=== PATIENT | female | born 1955 | race Caucasian/White ===

== ENCOUNTER 2017-07-05 12:43 | Emergency (ER) | payer MEDICAID ==
[2017-07-05] MEDS ORDERED: IBUPROFEN 400 MG TABLET ONE (13:17)
== END 2017-07-05 14:53 | disposition home or self-care (01) ==
LOC: EDH 12:43
DX: S93.401A Sprain of unspecified ligament of right ankle, initial encounter (principal); E11.9 Type 2 diabetes mellitus without complications; E78.5 Hyperlipidemia, unspecified; J44.9 Chronic obstructive pulmonary disease, unspecified; Z90.710 Acquired absence of both cervix and uterus; Z72.0 Tobacco use; Z88.6 Allergy status to analgesic agent; W07.XXXA Fall from chair, initial encounter; Y93.89 Activity, other specified; Y92.89 Other specified places as the place of occurrence of the external cause; Y99.8 Other external cause status
CPT/HCPCS: 73610

== ENCOUNTER → 2017-08-17 | Outpatient (CLI) | payer MEDICAID | END | disposition home or self-care (01) | LOC: RAH 07:24 | PROVIDERS: ATTEND Family Medicine | DX: I65.29 Occlusion and stenosis of unspecified carotid artery (principal) | CPT/HCPCS: 70551 ==

== ENCOUNTER 2018-03-08 08:08 | Emergency (ER) | payer MEDICAID ==
[2018-03-08 08:36] LABS: APPEARANCE,URINE Turbid (CLEAR); BILIRUBIN,URINE Negative (NEGATIVE); COLOR,URINE Yellow (YELLOW); GLUCOSE, URINE (UA) Negative (NEGATIVE); KETONES,URINE Negative (NEGATIVE); LEUKOCYTE ESTERASE ,URINE Large (NEGATIVE); NITRATE,URINE Positive (NEGATIVE); OCCULT BLOOD,URINE Moderate (NEGATIVE); PH,URINE 6.5 (5.0-8.0); PROTEIN,URINE POS 1+ (NEGATIVE); UROBILINOGEN,URINE 0.2 mg/dL (0.2-1.0)
[2018-03-08 08:46] LABS: RBC,URINE None Seen /HPF (0-1); WBC,URINE TNTC /HPF (0-1)
[2018-03-08 08:47] LABS: SQUAMOUS EPITHELIAL CELL,UR Moderate /HPF (0-2)
[2018-03-08 08:48] LABS: BACTERIA,URINE Moderate /HPF (None Seen); MUCUS,URINE Few LPF (None Seen)
[2018-03-08 08:53] LABS: AMPHET/METH SCREEN,URINE NEGATIVE (NEGATIVE); BARBITURATE SCREEN, URINE NEGATIVE (NEGATIVE); BENZODIAZEPINES SCREEN,URINE NEGATIVE (NEGATIVE); CANNABINOID SCREEN,URINE POSITIVE (NEGATIVE); COCAINE SCREEN,URINE POSITIVE (NEGATIVE); OPIATE SCREEN,URINE NEGATIVE (NEGATIVE); PHENCYCLIDINE SCREEN,URINE NEGATIVE (NEGATIVE)
[2018-03-08 09:39] LABS: CREATININE 0.7 mg/dL (0.5-1.5); POTASSIUM 3.6 mmol/L (3.5-5.1)
[2018-03-08 09:44] LABS: ALBUMIN 2.9 g/dL (3.5-5.0); BILIRUBIN,TOTAL 0.6 mg/dL (0.2-1.0); TOTAL PROTEIN, SERUM 7.2 g/dL (6.0-8.3)
[2018-03-08 09:51] LABS: BASOPHILS % (AUTO) 0.4 % (0.0-5.0); EOSINOPHILS % (AUTO) 0.1 % (0.0-8.0); HEMATOCRIT 39.9 % (36-48); MEAN CORPUSCULAR HEMOGLOBIN 29.3 pg (27.0-33.0); MEAN CORPUSCULAR HGB CONC 34.1 g/dL (32.0-36.0); MEAN CORPUSCULAR VOLUME 85.9 fL (79-99); MONOCYTES % (AUTO) 9.3 % (3.0-13.0); NEUTROPHILS % (AUTO) 84.2 % (40.0-77.0); PLATELET COUNT (AUTO) 214 K/uL (130-400); RED BLOOD CELL COUNT(AUTO) 4.64 MIL/uL (4.00-5.50); RED CELL DISTRIBUTION WIDTH 14.8 % (11.0-15.5); WHITE BLOOD COUNT (AUTO) 13.1 K/uL (4.8-10.8)
== END 2018-03-08 13:09 | disposition home or self-care (01) ==
LOC: EDH 08:08
DX: R10.32 Left lower quadrant pain (principal); R11.2 Nausea with vomiting, unspecified; R30.0 Dysuria; J44.9 Chronic obstructive pulmonary disease, unspecified; E11.9 Type 2 diabetes mellitus without complications; E78.5 Hyperlipidemia, unspecified; Z72.0 Tobacco use
CPT/HCPCS: 36415; 74176; 80053; 80305; 81001; 83690; 85025

== ENCOUNTER → 2019-01-26 | Outpatient (CLI) | payer MEDICAID | END | disposition home or self-care (01) | LOC: RAH 09:07 | PROVIDERS: ATTEND Family Medicine | DX: R10.9 Unspecified abdominal pain (principal) | CPT/HCPCS: 76700 ==

== ENCOUNTER 2019-08-20 23:40 | Observation (INO) | payer MEDICARE ==
[~2019-08-20] VITALS: Ht 162.6 cm; Wt 47.8 kg
[2019-08-21] MEDS ORDERED: IPRATROPIUM/ALBUTEROL SULFATE 3 ML SOLUTION IH ONE (01:14)
[2019-08-21] MEDS ORDERED: ALBUTEROL SULFATE 0.083% 2.5 MG/3 ML INH IH ONE ×2 (01:23→01:26)
[2019-08-21] MEDS ORDERED: METHYLPREDNISOLONE SOD SUCC 125MG/2ML VIAL ONE (01:38)
[2019-08-21] MEDS ORDERED: SODIUM CHLORIDE 0.9% 1000ML 1,000 ML IV ONE (01:38)
[2019-08-21 01:47] LABS: BASOPHILS % (AUTO) 0.7 % (0.0-5.0); EOSINOPHILS % (AUTO) 2.4 % (0.0-8.0); HEMATOCRIT 41.5 % (36-48); MEAN CORPUSCULAR HEMOGLOBIN 28.3 pg (27.0-33.0); MEAN CORPUSCULAR HGB CONC 33.3 g/dL (32.0-36.0); MEAN CORPUSCULAR VOLUME 85.2 fL (79-99); MONOCYTES % (AUTO) 7.9 % (3.0-13.0); NEUTROPHILS % (AUTO) 77.3 % (40.0-77.0); PLATELET COUNT (AUTO) 137 K/uL (130-400); RED BLOOD CELL COUNT(AUTO) 4.87 MIL/uL (4.00-5.50); RED CELL DISTRIBUTION WIDTH 14.6 % (11.0-15.5); WHITE BLOOD COUNT (AUTO) 2.9 K/uL (4.8-10.8)
[2019-08-21 01:55] LABS: CREATININE 0.8 mg/dL (0.5-1.5); POTASSIUM 3.8 mmol/L (3.5-5.1)
[2019-08-21 02:01] LABS: ALBUMIN 3.2 g/dL (3.5-5.0); BILIRUBIN,TOTAL 0.3 mg/dL (0.2-1.0); TOTAL PROTEIN, SERUM 7.2 g/dL (6.0-8.3)
[2019-08-21 02:02] LABS: INR 1.02 (0.85-1.15); PROTHROMBIN TIME 10.7 SEC (9.6-11.6)
[2019-08-21] MEDS ORDERED: AZITHROMYCIN 500MG+NS 250ML 250 ML IV ONE (02:02)
[2019-08-21 02:06] LABS: B-TYPE NATRIURETIC PEPTIDE 37 pg/mL (0-100)
[2019-08-21 02:08] LABS: INFLUENZA TYPE A NEGATIVE FOR TYPE A (NEG)
[2019-08-21 02:09] LABS: INFLUENZA TYPE B NEGATIVE FOR TYPE B (NEG)
[2019-08-21 02:20] LABS: PARTIAL THROMBOPLASTIN TIME 30.8 SEC (26.3-35.5)
[2019-08-21] MEDS ORDERED: ACETAMINOPHEN EXTRA STRENGTH 500 MG TABLET ONE (02:29)
[2019-08-21 02:51] LABS: BAND NEUTROPHILS % (MANUAL) 16 % (0-2); LYMPHOCYTES % (MANUAL) 13 % (22-44); MAN.DIFF COMMENT-IMPRESSION MANUAL DIFFERENTIAL; MONOCYTES % (MANUAL) 5 % (2-9); PLATELET MORPHOLOGY COMMENT ADEQUATE; REACTIVE LYMPHOCYTES 2 % (0-0); SEGMENTED NEUTROPHILS % 64 % (40-70)
[2019-08-21] MEDS ORDERED: DiphenhydrAMINE HCL 50 MG/ML VIAL ONE (03:34)
[2019-08-21 04:30] VITALS: BP 101/53
[2019-08-21] MEDS ORDERED: GLUCAGON 1MG KIT 1 MG ML IM PRN (05:15)
[2019-08-21] MEDS ORDERED: DEXTROSE 50%-WATER 50 ML DISP.SYRIN IV PRN (05:15)
[2019-08-21] MEDS ORDERED: SODIUM CHLORIDE 0.9% 1000ML 1,000 ML IV SCH (05:15)
[2019-08-21 05:33] LABS: ABG HCO3 20.7 mmol/L (21.0-28.0); ABG PCO2 33 mmHg (32-45)
[2019-08-21] MEDS ORDERED: BUDESONIDE 0.5 MG/2 ML INH IH SCH (06:00)
[2019-08-21] MEDS ORDERED: IPRATROPIUM/ALBUTEROL SULFATE 3 ML SOLUTION IH SCH ×2 (06:00→12:00)
[2019-08-21] MEDS: METHYLPREDNISOLONE SOD SUCC 40MG/ML 1ML IVP SCH ×2 (06:00→11:30)
[2019-08-21] MEDS: INSULIN R PO SS1 SQ SCH ×3 (06:01→17:14)
[2019-08-21 07:30] VITALS: BP 109/65
[2019-08-21] MEDS ORDERED: IPRATROPIUM 0.5 MG/2.5 ML INH IH PRN (09:15)
[2019-08-21] MEDS ORDERED: ALPR1TAB2 PO (10:58)
[2019-08-21] MEDS ORDERED: ROPI2TAB7 PO (10:58)
[2019-08-21] MEDS ORDERED: TIOT4MIS5 IH (10:58)
[2019-08-21] MEDS ORDERED: METF-444 PO (10:58)
[2019-08-21] MEDS ORDERED: BUDE10.2 IH (10:58)
[2019-08-21] MEDS ORDERED: PREG150C PO (10:58)
[2019-08-21] MEDS ORDERED: CLOP75TA14 PO (10:59)
[2019-08-21 11:00] VITALS: BP 109/60
[2019-08-21] MEDS ORDERED: HYDR-4453 PO (11:02)
[2019-08-21] MEDS ORDERED: MIRT-72 PO (11:02)
[2019-08-21] MEDS ORDERED: PREGABALIN 75 MG CAPSULE PO SCH (11:04)
[2019-08-21] MEDS ORDERED: ROPINIROLE HCL 1 MG TABLET PO SCH (14:00)
[2019-08-21] MEDS ORDERED: ALPRAZOLAM 1 MG TAB PO SCH (14:00)
[2019-08-21] MEDS ORDERED: HYDROCODONE/ACETAMINOPHEN 10/325 MG TAB PO SCH (14:00)
--- NOTE | 2019-08-21 14:54 | NUR ---
[id number] patient signed ALVARADO Letter, i faxed ALVARADO Letter to [id number] and placed in chart under consent tab
--- NOTE | 2019-08-21 15:05 | NUR ---
RDSCREEN - BMI 18.1, increased malnutrition risk Pt admitted for COPD exacerbation. Pt with chewing difficulty, Pt explains dentures getting repaired but may not be affordable. Pt also expresses difficulty to receive adequate meals/nutrition at home due to stress and dependence on care provider. Pt with significant 20% weight loss within one year. RD recommend malnutrition education. Also recommend mechanical soft diet, Ensure TID. Pt with swallowing difficulty with corn and rice. RD to follow up and to continue to monitor. Please notify RD as additional nutrition concerns arise. Thank you. Addendum: 08/21/19 at [address] RD Amended: Links added.
--- NOTE | 2019-08-21 15:13 | NUR ---
Nutrition Education Malnutrition education provided secondary to Pt with significant weight loss x1Yr, moderate to severe body fat and muscle loss. Pt also educated on eating regular consistent meals daily. Pt verbalized understanding. [place] to follow up. Addendum: 08/21/19 at [address] Amended: Links added.
--- NOTE | 2019-08-21 15:52 | NUR ---
INITIAL Patient lives with son, Zachariah Alejandro, [phone]. No Home Health. [facility] X 22 hours a week. DME: shower chair. Patient needs help with ADL's independently but does not drive. PCP is Dr. Govind Vann. Pharmacy is [facility]. DCP is home. Addendum: 08/21/19 at 1554 by ALLYSSA TSAI SS Amended: Links added.
[2019-08-21 16:00] VITALS: BP 109/68
--- NOTE | 2019-08-21 17:36 | NUR ---
DISCHARGE NOTE: DISCHARGE INSTRUCTIONS GIVEN TO PATIENT, MADE AWARE OF NEED TO FOLLOW UP WITH [facility] IN ONE WEEK AND PCP 2-3 DAYS. NO NEW PRESCRIPTIONS GIVEN. IV DISCONTINUED. PATIENT AT THIS TIME DENIES SHORTNESS OF BREATH. BREATHING NON LABORED. ROOM AIR. NO SIGNS AND SYMPTOMS OF ACUTE DISTRESS NOTED. PATIENT WAITING FOR HER SON TO PICK HER UP
[2019-08-21] MEDS ORDERED: MIRTAZAPINE 15 MG TABLET PO SCH (21:00)
[2019-08-22] MEDS ORDERED: METFORMIN HCL 500 MG TABLET PO SCH (08:00)
[2019-08-22] MEDS ORDERED: CETIRIZINE HCL 5 MG TABLET PO SCH (09:00)
[2019-08-22] MEDS ORDERED: TIOTROPIUM BROMIDE 4 GM IH SCH (09:00)
[2019-08-22] MEDS ORDERED: CLOPIDOGREL BISULFATE 75 MG TAB PO SCH (09:00)
== END 2019-08-21 17:55 | disposition home or self-care (01) ==
LOC: EDH 23:40 → EDHIP 08-21 02:35 → 3DH 08-21 03:39
PROVIDERS: ADMIT Internal Medicine Critical Care Medicine; ATTEND Internal Medicine Critical Care Medicine
DX: J44.1 Chronic obstructive pulmonary disease with (acute) exacerbation (principal); I95.9 Hypotension, unspecified; S80.862A Insect bite (nonvenomous), left lower leg, initial encounter; R11.2 Nausea with vomiting, unspecified; E87.1 Hypo-osmolality and hyponatremia; F41.9 Anxiety disorder, unspecified; F32.9 Major depressive disorder, single episode, unspecified; E78.5 Hyperlipidemia, unspecified; E11.9 Type 2 diabetes mellitus without complications; E44.0 Moderate protein-calorie malnutrition; R63.4 Abnormal weight loss; F17.210 Nicotine dependence, cigarettes, uncomplicated; F12.10 Cannabis abuse, uncomplicated; Z87.01 Personal history of pneumonia (recurrent); Z79.51 Long term (current) use of inhaled steroids; Z79.899 Other long term (current) drug therapy; Z88.6 Allergy status to analgesic agent; Z91.048 Other nonmedicinal substance allergy status; Z88.0 Allergy status to penicillin; W57.XXXA Bitten or stung by nonvenomous insect and other nonvenomous arthropods, initial encounter; Y93.89 Activity, other specified; Y92.89 Other specified places as the place of occurrence of the external cause; Z68.1 Body mass index [BMI] 19.9 or less, adult
CPT/HCPCS: 36415; 36600; 71045 ×2; 80053; 82550; 82803; 82948 ×3; 83690; 83880; 84484; 85025; 85610; 85730; 87040 ×2; 87804 ×2; 93005; 94640 ×6; 94664; 96361; 96374; 96376; 99285; G0378 ×14; J0456; J1200; J1815 ×2; J2920 ×2; J2930; J7030

== ENCOUNTER 2022-02-06 14:40 | Emergency (ER) | payer MEDICARE ==
[~2022-02-06] VITALS: Ht 162.6 cm; Wt 49.9 kg
[~2022-02-06 14:40] MED LIST: ALPR1TAB2 PO; BUDE10.2 IH; CLOP75TA14 PO; FLUT16H NASAL; HYDR-4453 PO; LORA10TA7 PO; METF-444 PO; MIRT-72 PO; PREG150C PO; ROPI2TAB7 PO; TIOT4MIS5 IH
[2022-02-06 14:43] VITALS: BP 116/54
[2022-02-06] MEDS ORDERED: CYCLOBENZAPRINE HCL 10 MG TABLET PO ONE (15:00)
[2022-02-06] MEDS ORDERED: 0.9% NACL 500ML IV.SOLN 500 ML IV SCH (15:00)
[2022-02-06] MEDS ORDERED: KETOROLAC 30MG VIAL (30MG/ML) IVP ONE (15:00)
[2022-02-06] MEDS ORDERED: PROMETHAZINE HCL 25 MG/ML 1ML AMPULE IM SCH (15:00)
[2022-02-06] MEDS ORDERED: PROMETHAZINE HCL 25 MG/ML 1ML AMPULE IVPB SCH (15:00)
[2022-02-06 15:14] LABS: BASOPHILS % (AUTO) 0.7 % (0.0-5.0); EOSINOPHILS % (AUTO) 2.8 % (0.0-8.0); HEMATOCRIT 38.4 % (36-48); LYMPHOCYTES % (AUTO) 27.2 % (21.0-51.0); MEAN CORPUSCULAR HGB CONC 32.8 g/dL (32.0-36.0); MEAN CORPUSCULAR VOLUME 88.5 fL (79-99); MONOCYTES % (AUTO) 11.9 % (3.0-13.0); NEUTROPHILS % (AUTO) 56.7 % (40.0-77.0); PLATELET COUNT (AUTO) 230 K/uL (130-400); RED BLOOD CELL COUNT(AUTO) 4.34 MIL/uL (4.00-5.50); RED CELL DISTRIBUTION WIDTH 14.5 % (11.0-15.5); WHITE BLOOD COUNT (AUTO) 4.3 K/uL (4.8-10.8)
[2022-02-06 15:26] LABS: CREATININE 0.7 mg/dL (0.5-1.5); POTASSIUM 4.8 mmol/L (3.5-5.1)
[2022-02-06 15:31] LABS: TOTAL PROTEIN, SERUM 6.7 g/dL (6.0-8.3)
[2022-02-06] MEDS ORDERED: NAPR-1180 PO (16:02)
[2022-02-06] MEDS ORDERED: CYCL10TA16 PO (16:02)
[2022-02-06] MEDS ORDERED: ALBU8.5H8 IH (16:02)
[2022-02-06] MEDS ORDERED: D-ME1POW16 PO (16:02)
== END 2022-02-06 16:12 | disposition home or self-care (01) ==
LOC: EDH 14:40
DX: G44.209 Tension-type headache, unspecified, not intractable (principal); J06.9 Acute upper respiratory infection, unspecified; M26.69 Other specified disorders of temporomandibular joint; Z20.822 Contact with and (suspected) exposure to COVID-19; I10 Essential (primary) hypertension; E11.9 Type 2 diabetes mellitus without complications; M19.90 Unspecified osteoarthritis, unspecified site; Z88.0 Allergy status to penicillin; Z88.6 Allergy status to analgesic agent; Z79.1 Long term (current) use of non-steroidal anti-inflammatories (NSAID); Z79.51 Long term (current) use of inhaled steroids; Z79.899 Other long term (current) drug therapy; Z86.73 Personal history of transient ischemic attack (TIA), and cerebral infarction without residual deficits
CPT/HCPCS: 99284; 96374; 87635; 80053; 85025; 36415; 96372; C9803; J7040; J2550; J1885

== ENCOUNTER 2022-10-01 13:37 | Emergency (ER) | payer MEDICARE ==
[~2022-10-01] VITALS: Ht 167.6 cm; Wt 45.4 kg
[~2022-10-01 13:37] MED LIST changes: +ALBU8.5H8 IH; +CLOP-31 PO; -CLOP75TA14 PO; +CYCL10TA16 PO; +D-ME1POW16 PO; +NAPR-1180 PO
[2022-10-01 14:05] VITALS: BP 126/58
[2022-10-01 14:57] LABS: BASOPHILS % (AUTO) 0.9 % (0.0-5.0); EOSINOPHILS % (AUTO) 1.1 % (0.0-8.0); HEMATOCRIT 41.8 % (36-48); LYMPHOCYTES % (AUTO) 22.9 % (21.0-51.0); MEAN CORPUSCULAR HEMOGLOBIN 28.9 pg (27.0-33.0); MEAN CORPUSCULAR HGB CONC 32.8 g/dL (32.0-36.0); MEAN CORPUSCULAR VOLUME 88.2 fL (79-99); MONOCYTES % (AUTO) 7.9 % (3.0-13.0); PLATELET COUNT (AUTO) 232 K/uL (130-400); RED BLOOD CELL COUNT(AUTO) 4.74 MIL/uL (4.00-5.50); RED CELL DISTRIBUTION WIDTH 14.2 % (11.0-15.5); WHITE BLOOD COUNT (AUTO) 5.7 K/uL (4.8-10.8)
[2022-10-01 15:04] LABS: CREATININE 0.8 mg/dL (0.5-1.5); POTASSIUM 3.4 mmol/L (3.5-5.1)
[2022-10-01 15:11] LABS: ALBUMIN 4.1 g/dL (3.5-5.0); TOTAL PROTEIN, SERUM 7.6 g/dL (6.0-8.3)
== END 2022-10-01 16:37 | disposition home or self-care (01) ==
LOC: EDH 13:37
DX: F41.9 Anxiety disorder, unspecified (principal); R05.9 Cough, unspecified; M54.9 Dorsalgia, unspecified; G43.909 Migraine, unspecified, not intractable, without status migrainosus; F17.200 Nicotine dependence, unspecified, uncomplicated; E11.9 Type 2 diabetes mellitus without complications; I10 Essential (primary) hypertension; M19.90 Unspecified osteoarthritis, unspecified site; Z79.1 Long term (current) use of non-steroidal anti-inflammatories (NSAID); Z79.51 Long term (current) use of inhaled steroids; Z79.899 Other long term (current) drug therapy; Z86.73 Personal history of transient ischemic attack (TIA), and cerebral infarction without residual deficits; Z88.0 Allergy status to penicillin; Z88.6 Allergy status to analgesic agent
CPT/HCPCS: 36415; 71045; 80053; 83735; 84484; 85025; 93005

== ENCOUNTER 2022-10-05 12:00 | Emergency (ER) | payer MEDICARE ==
[~2022-10-05] VITALS: Ht 149.9 cm; Wt 59.0 kg
[2022-10-05 12:50] LABS: BASOPHILS % (AUTO) 0.9 % (0.0-5.0); EOSINOPHILS % (AUTO) 2.9 % (0.0-8.0); HEMATOCRIT 38.6 % (36-48); LYMPHOCYTES % (AUTO) 21.3 % (21.0-51.0); MEAN CORPUSCULAR HEMOGLOBIN 29.4 pg (27.0-33.0); MEAN CORPUSCULAR HGB CONC 33.4 g/dL (32.0-36.0); MEAN CORPUSCULAR VOLUME 87.9 fL (79-99); MONOCYTES % (AUTO) 8.6 % (3.0-13.0); NEUTROPHILS % (AUTO) 65.9 % (40.0-77.0); PLATELET COUNT (AUTO) 237 K/uL (130-400); RED BLOOD CELL COUNT(AUTO) 4.39 MIL/uL (4.00-5.50); RED CELL DISTRIBUTION WIDTH 14.2 % (11.0-15.5); WHITE BLOOD COUNT (AUTO) 5.6 K/uL (4.8-10.8)
[2022-10-05] MEDS ORDERED: 0.9% NACL 500ML IV.SOLN 500 ML IV ONE (13:00)
[2022-10-05] MEDS ORDERED: LORAZEPAM 2 MG/ML 1 ML VIAL IVP ONE (13:00)
[2022-10-05 13:15] LABS: CREATININE 0.8 mg/dL (0.5-1.5); POTASSIUM 3.4 mmol/L (3.5-5.1)
[2022-10-05 13:20] LABS: ALBUMIN 3.5 g/dL (3.5-5.0); TOTAL PROTEIN, SERUM 6.4 g/dL (6.0-8.3)
[2022-10-05 14:44] LABS: AMPHET/METH SCREEN,URINE NEGATIVE (NEGATIVE); BARBITURATE SCREEN, URINE NEGATIVE (NEGATIVE); BENZODIAZEPINES SCREEN,URINE NEGATIVE (NEGATIVE); CANNABINOID SCREEN,URINE NEGATIVE (NEGATIVE); COCAINE SCREEN,URINE POSITIVE (NEGATIVE); OPIATE SCREEN,URINE NEGATIVE (NEGATIVE); PHENCYCLIDINE SCREEN,URINE NEGATIVE (NEGATIVE)
[2022-10-05 16:07] LABS: BILIRUBIN,URINE NEGATIVE (NEGATIVE); COLOR,URINE YELLOW (YELLOW); GLUCOSE, URINE (UA) NEGATIVE (NEGATIVE); KETONES,URINE 15 mg/dL (NEGATIVE); LEUKOCYTE ESTERASE ,URINE LARGE Leu/uL (NEGATIVE); NITRATE,URINE NEGATIVE (NEGATIVE); OCCULT BLOOD,URINE TRACE-INTACT (NEGATIVE); PROTEIN,URINE 100 mg/dL (NEGATIVE); UROBILINOGEN,URINE 0.2 mg/dL (0.2-1.0)
[2022-10-05 16:25] LABS: APPEARANCE,URINE SLIGHTLY CLOUDY (CLEAR)
[2022-10-05 16:28] LABS: BACTERIA,URINE Many /HPF (None Seen); RBC,URINE 0-1 /HPF (0-1)
[2022-10-05] MEDS ORDERED: SULF1TAB42 PO (16:37)
[2022-10-05] MEDS ORDERED: SULFAMETHOX-TMP DS 800/160 TAB PO SCH (17:00)
[2022-10-05 17:19] VITALS: BP 136/86
== END 2022-10-05 17:38 | disposition home or self-care (01) ==
LOC: EDH 12:00
DX: N39.0 Urinary tract infection, site not specified (principal); E11.9 Type 2 diabetes mellitus without complications; J44.9 Chronic obstructive pulmonary disease, unspecified; F41.9 Anxiety disorder, unspecified; Z88.0 Allergy status to penicillin; Z88.8 Allergy status to other drugs, medicaments and biological substances; Z79.899 Other long term (current) drug therapy
CPT/HCPCS: 99285; 96374; 71045; 96361; 84484; 80053; 80305; 85025; 87088; 36415; 93005; 81001; J7040; J2060

== ENCOUNTER 2025-04-11 15:29 | Emergency (ER) | payer MEDICARE, MEDICAID ==
[~2025-04-11] VITALS: Ht 167.6 cm; Wt 63.5 kg
[~2025-04-11 15:29] MED LIST changes: +ROPI2TAB53 PO; -ROPI2TAB7 PO; +SULF1TAB42 PO
--- NOTE | 2025-04-11 15:34 | ERN ---
ED Note History of Present Illness Stated Complaint: OTHER Time Seen by MD: 15:31 Dictation: PATIENT IS A 69-YEAR-OLD FEMALE COMING IN VIA EMS FROM A LOCAL [facility] [facility]. SHE STATES SHE IS HAVING COCCYX PAIN STATUS POST A SAME LEVEL TRIP FALL 2-3 DAYS AGO. ALSO STATES SHE FEELS VERY WEAK AND POSSIBLY DEHYDRATED. NO SPECIFIC COMPLAINTS. NEUROVASCULAR CMS INTACT TO ALL EXTREMITIES, NO BLOOD THINNERS NO HEAD INJURY. NO CHANGE IN BLADDER BLADDER FUNCTION Allergies: Coded Allergies: Penicillins (Unverified Allergy, Severe, SWELLING, 08/21/19) aspirin (Unverified Allergy, Unknown, SWELLING, 08/21/19) warfarin (Unverified Allergy, Unknown, 02/06/22) wool (Unverified Allergy, Unknown, RASH, 08/21/19) Home Meds Active Scripts Sulfamethoxazole/Trimethoprim (Bactrim Ds Tablet) 1 Each Tablet, 1 TAB PO BID for 7 Days, #14 TAB 0 Refills Prov:NIRAJ WEINER CLAY MAKER 10/05/22 Albuterol Sulfate (Proair Hfa) 8.5 Gm Hfa.aer.ad, 2 PUFF IH QIDP, #1 INHALER Prov:EJ LAGUNA 02/06/22 D-Methorphan/PE/Acetaminophen (Theraflu Ms Severe Cold Pckt) 1 Each Powd.pack, 1 EACH PO QIDP, #20 PACK Prov:EJ LAGUNA 02/06/22 Cyclobenzaprine HCl (Flexeril) 10 Mg Tab, 10 MG PO BID, #30 TAB Prov:EJ LAGUNA 02/06/22 Naproxen (Naprosyn) 500 Mg Tablet, 500 MG PO BIDPC, #60 TAB Prov:EJ LAGUNA 02/06/22 Loratadine (Loratadine) 10 Mg Tablet, 10 MG PO DAILY for 30 Days, #30 TAB Prov:SANDRA HAAS MD 11/07/21 Fluticasone Propionate (Flonase Nasal [place]) 50 Mcg/[place], 50 MCG NASAL BID for 7 Days, #14 SPRAY Prov:SANDRA HAAS MD 11/07/21 Reported Medications Mirtazapine (Mirtazapine) 15 Mg Tab.rapdis, 15 MG PO HS, TAB 3/3/20 Hydrocodone/Acetaminophen ([place] 10-325 Tablet) 1 Each Tablet, 1 EACH PO TID, TAB 08/21/19 Clopidogrel Bisulfate (Plavix) 75 Mg Tablet, 75 MG PO DAILY, TAB 08/21/19 Pregabalin (Lyrica) 150 Mg Capsule, 150 MG PO BID, CAP 08/21/19 Alprazolam (Xanax) 1 Mg Tablet, 1 MG PO TID, TAB 08/21/19 Budesonide/Formoterol Fumarate (Symbicort 160-4.5 Mcg Inhaler) 10.2 Gm Hfa.aer.ad, 10.2 GM IH BID 08/21/19 Metformin HCl (Metformin HCl) 500 Mg Tablet, 500 MG PO DAILYBKFST, TAB 08/21/19 Ropinirole HCl (Ropinirole HCl) 2 Mg Tablet, 2 MG PO TID, TAB 08/21/19 Tiotropium [place] (Spiriva Respimat) 4 Gm Mist.inhal, 4 GM IH DAILY 08/21/19 Past Medical History Past Medical History: Anxiety, Bronchitis, COPD, Diabetes-Type II Additional Past Medical Hx: Restless leg syndrome, BACK PAIN Surgical History: Other Surgical History Other: SHOULDER AND NECK SURGERY Family History: Negative Social History: Negative History: Not Applicable RN Note Reviewed/Agreed w/PFSH: Yes Review of System Dictation CONSTITUTIONAL: NEGATIVE EXCEPT FOR HPI GENERALIZED BODY WEAK HEAD/FACE: NEGATIVE EXCEPT FOR HPI EENT: NEGATIVE EXCEPT FOR HPI RESPIRATORY: NEGATIVE EXCEPT FOR HPI GASTROINTESTINAL/ABDOMINAL: NEGATIVE EXCEPT FOR HPI GENITOURINARY: NEGATIVE EXCEPT FOR HPI MUSCULOSKELETAL: NEGATIVE EXCEPT FOR HPI COCCYX PAIN INTEGUMENTARY: NEGATIVE EXCEPT FOR HPI NEUROLOGICAL/PSYCH: NEGATIVE EXCEPT FOR HPI HEMATOLOGIC/LYMPHATIC: NEGATIVE EXCEPT FOR HPI ALL SYSTEMS NEGATIVE, EXCEPT NOTED ABOVE. 13 POINT REVIEW OF SYSTEMS ASSESSED AND ALL NEGATIVE EXCEPT FOR ABOVE. Initial Vital Sign VS Vital Signs Date Time Temp Pulse Resp B/P (MAP) Pulse Ox O2 Delivery O2 Flow Rate FiO2 04/11/25 16:04 98.1 72 21 104/59 97 Room Air 0 04/11/25 16:18 21 Physical Exam Dictation VITAL SIGNS REVIEWED GENERAL APPEARANCE: ALERT, ORIENTED X 3, MILD ACUTE DISTRESS, WELL DEVELOPED, NOURISHED. HEAD AND FACE: NON-TRAUMATIC. EYES: PERRL, PINK CONJUNCTIVAS, EYELID NO TRAUMA, ANTERIOR CHAMBER WITH ARCUS SENILIS. EARS: PINNAS INTACT AND NO SIGNS OF TRAUMA OR ERYTHEMA EAR CANALS CLEAR AND NO DISCHARGE TM NO ERYTHEMA NOSE: NO DISCHARGE, NO BLEEDING. OROPHARYNX: MOUTH NORMAL, TONGUE PINK, PHARYNX CLEAR,NO ERYTHEMA, TONSILS NO EXUDATES, NO ABSCESSES NOTED, MUCOUS MEMBRANE MOIST NECK: SUPPLE, NON-TENDER, NO THYROMEGALY, NO MASSES, NO JVD, NO BRUITS BREAST:DEFERRED CHEST:NO TENDERNESS, NO CREPITUS, NO PARADOXICAL MOVEMENT, NO RETRACTIONS LUNGS:CLEAR, WELL-VENTILATED, SYMMETRIC, NO RALES, NO WHEEZING, NO RHONCHI, NO STRIDOR, GOOD BREATH SOUNDS BILATERALLY HEART: REGULAR RATE, REGULAR RHYTHM, NO MURMUR, NO GALLOPS VASCULAR: NO PERIPHERAL EDEMA, ABDOMEN: SOFT, POSITIVE BOWEL SOUNDS, NONDISTENDED, NO GUARDING, NONTENDER, NO REBOUND, NO MASSES NO HEPATOMEGALY, NO SPLENOMEGALY, NO MARTÍNEZ'S SIGN, NO HERNIAS. RECTAL: DEFERRED GENITAL: DEFERRED NEUROLOGICAL: NORMAL SPEECH, MOTOR FUNCTION INTACT, SENSORY FUNCTION INTACT MUSCULOSKELETAL: NECK NONTENDER, FULL RANGE OF MOTION, MILD MIDLINE SACRAL COCCYX TENDERNESS WITH PALPATION NEGATIVE STRAIGHT LEG RAISE BILATERALLY 10 DEGREE EXTREMITIES: NONTENDER, FULL RANGE OF MOTION SKIN: COLOR PINK, DRY, NO TURGOR, NO RASH, NO LACERATIONS, NO ABRASIONS, NO CONTUSIONS. LYMPHATIC: DEFERRED Results (Laboratory/Radiology) Laboratory/Radiology Laboratory Tests Test 04/11/25 15:45 White Blood Count 7.0 K/uL (4.8-10.8) Red Blood Count 4.73 MIL/uL (4.00-5.50) Hemoglobin 13.5 g/dL (12.0-16.0) Hematocrit 38.8 % (36-48) Mean Corpuscular Volume 82.0 fL (79-99) Mean Corpuscular Hemoglobin 28.5 pg (27.0-33.0) Mean Corpuscular Hemoglobin Concent 34.8 g/dL (32.0-36.0) Red Cell Distribution Width 14.8 % (11.0-15.5) Platelet Count 294 K/uL (130-400) Mean Platelet Volume 9.3 fL (7.5-10.5) Immature Granulocyte % (Auto) 0.6 % (0-1) Neutrophils (%) (Auto) 65.3 % (40.0-77.0) Lymphocytes (%) (Auto) 22.0 % (21.0-51.0) Monocytes (%) (Auto) 9.8 % (3.0-13.0) Eosinophils (%) (Auto) 1.9 % (0.0-8.0) Basophils (%) (Auto) 0.4 % (0.0-5.0) Neutrophils # (Auto) 4.5 K/uL (1.8-7.7) Lymphocytes # (Auto) 1.5 K/uL (1.0-4.8) Monocytes # (Auto) 0.7 K/uL (0.1-1.0) Eosinophils # (Auto) 0.13 K/uL (0.00-0.70) Basophils # (Auto) 0.03 K/uL (0.00-0.20) Absolute Immature Granulocyte (auto 0.04 K/uL (0-1) Nucleated Red Blood Cells 0.0 % (0.0-0.19) Sodium Level 134 mmol/L (136-145) L Potassium Level 3.0 mmol/L (3.5-5.1) *L Chloride Level 97 mmol/L (101-111) L Carbon Dioxide Level 26 mmol/L (21-32) Blood Urea Nitrogen 30 mg/dL (7-18) H Creatinine 0.8 mg/dL (0.5-1.0) Glomerular Filtration Rate Calc 79 mL/min (>90) Random Glucose 154 mg/dL (70-105) H Total Calcium 9.0 mg/dL (8.5-10.1) Troponin I High Sensitivity 25 ng/L (4-50) 1645/SACRAL COCCYX X-RAY DEGENERATIVE CHANGES ONLY NO FRACTURE Labs Reviewed?: Yes EKG Comment: 1559/EKG SINUS BRADYCARDIA/HEART RATE 59/AXIS NORMAL/LEFT ATRIAL ENLARGEMENT ED Course ED Course Orders Procedure Category Date Status Time Sacrum/Coccyx 2+Vws RAD 04/11/25 Resulted 15:32 Cbc With Differential LAB 04/11/25 Complete 15:32 Troponin I High LAB 04/11/25 Complete Sensitivity 15:32 12 Lead Ekg Tracing- EKG 04/11/25 Resulted Technical 15:32 0.9%Nacl 1000ml (Ns PHA 04/11/25 Complete 1000ml) 16:00 Ketorolac PHA 04/11/25 Complete Tromethamine 30mg/Ml 16:00 Basic Metabolic Panel LAB 04/11/25 Complete 15:32 Potassium Bicarb/Cit PHA 04/11/25 Complete Ac 25meq (K-Lyte Ta 16:30 Acetaminophen 500mg PHA 04/11/25 Complete Tab (Tylenol 500mg T 16:30 Current Medications Medications (Trade) Dose Ordered Sig/Franco Route PRN Reason Start Time Stop Time Status Last Admin Dose Admin Acetaminophen (TYLenol 500MG TAB) 1,000 mg ONCE ONCE PO 04/11/25 16:30 04/11/25 16:32 DC Ketorolac Tromethamine (toRADol) 30 mg ONCE ONCE IVP 04/11/25 16:00 04/11/25 16:26 DC Potassium Bicarbonate (K-Lyte Tablet Eff 25 Meq Tablet.eff) 50 meq ONCE ONCE PO 04/11/25 16:30 04/11/25 16:31 DC 04/11/25 16:57 Sodium Chloride 1,000 ml @ 0 mls/hr ONCE ONCE IV 04/11/25 16:00 04/11/25 16:01 DC 04/11/25 16:57 Vital Signs Date Time Temp Pulse Resp B/P (MAP) Pulse Ox O2 Delivery O2 Flow Rate FiO2 04/11/25 16:18 98.1 72 21 104/59 97 Room Air* 0 21 04/11/25 16:04 98.1 72 21 104/59 97 Room Air 0 1610/POTASSIUM 3.0. WE WILL FOLLOW TO REPLACE.1730/PATIENT HEMODYNAMICALLY STABLE WE WILL BE DISCHARGED HOME TO FAMILY SHE IS AWARE X-RAY IS NEGATIVE SHE HAS MILD DEHYDRATION. POTASSIUM WAS 3.0 AND WAS REPLACED. HEART Score Response (Comments) Value EKG: Repolarization changes 1 Age: > 65yrs (+2) 2 Risk Factors: 1-2 risk factors (+1) 1 Initial Troponin: Normal limit (0) 0 Total 4 Medical Decision Making MDM MDM: DIFFERENTIAL DIAGNOSIS: SACRAL/LUMBAR COCCYX/FRACTURE/ELECTROLYTE IMBALANCE/DEHYDRATION/WEAKNESS/ACS RATIONALE: TESTS CONSIDERED AND ORDERED SECONDARY TO SHARED DECISION MAKING INCLUDE: LABS/RADIOLOGY/EKG PREVIOUS OUTSIDE RECORDS REVIEWED: OLD ER VISITS. RISK OF COMPLICATION AND/OR MORBIDITY OR MORTALITY OF PATIENT MANAGEMENT: NONE MEDICATIONS-PER MEDICATION RECONCILIATION NEED FOR HOSPITALIZATION: PATIENT DOES NOT MEET CRITERIA FOR HOSPITALIZATION. NONE NEED FOR EMERGENCY MAJOR/MINOR SURGERY: NO THERE ARE NO SOCIAL CONCERNS WITH THIS PATIENT. PRESCRIPTION DRUG MANAGEMENT TYLENOL PRESCRIPTIONS WILL INCLUDE SYMPTOMATIC CARE PATIENT'S PRIOR EXTERNAL MEDICAL RECORDS FROM OTHER ER VISITS WERE REVIEWED BY ME INDICATED. PRIOR TESTING AND RESULTS FROM PREVIOUS VISITS WERE REVIEWED. PRIOR TESTS WERE TAKEN INTO ACCOUNT WITH MEDICAL DECISION MAKING AND RESOURCE UTILIZATION, INDEPENDENT HISTORIAN/HISTORIANS WERE USED TO OBTAIN COMPLETE MEDICAL HISTORY. I INDEPENDENTLY INTERPRETED THE TEST THAT WERE PERFORMED, RESULTS WERE REVIEWED BY ME AND CONSIDERED FINDINGS ON RADIOLOGY IF ORDERED. MEDICAL MANAGEMENT AND EXAMINATION INTERPRETATION DISCUSSIONS WERE HAD BY ME WITH OTHER QUALIFIED HEALTHCARE PROFESSIONALS INDICATED FOR THE PATIENT'S CARE. DX & DISP Disposition: Discharge Departure Impression: Primary Impression: Mild dehydration Additional Impressions: Hypokalemia, Hyperglycemia, Contusion of lower back Condition: Stable Additional Instructions: FOLLOW-UP WITH PRIMARY CARE PROVIDER IN 1 TO 2 DAYS. TAKE MEDICATIONS DIRECTED HERE IN THE EMERGENCY ROOM. OKAY TO CONTINUE HOME MEDICATIONS UNLESS OTHERWISE DISCUSSED DURING YOUR VISIT IN THE EMERGENCY ROOM TODAY. RETURN TO YOUR NEAREST EMERGENCY ROOM IF SYMPTOMS WORSEN OR IF THERE IS NO IMPROVEMENT. CALL 911 IF YOU NEED IMMEDIATE ASSISTANCE. TAKE TYLENOL OR MOTRIN [id number] NEEDED AND IF NO CONTRAINDICATIONS ARE PRESENT. INCREASE ORAL HYDRATION. A WOUND CULTURE OR URINE CULTURE WAS ORDERED HERE IN THE EMERGENCY ROOM DEPARTMENT PLEASE FOLLOW-UP WITH PRIMARY CARE PROVIDER AND ADVISE THEM TO GET REPEAT PORTS FROM OUR FACILITY. IF YOU HAD ANY MALATHI WRAP/SPLINTS THAT WERE APPLIED HERE, PLEASE DO NOT REMOVE THEM UNTIL YOU SEE YOUR PRIMARY CARE OR SPECIALTY. TYLENOL [id number] NEEDED FOR PAIN. WARM COMPRESSES TO BACK THREE TO 4 TIMES A DAY. INCREASE YOUR WATER INTAKE., SEE YOUR PRIMARY CARE DOCTOR FOR FOLLOW UP IN THE NEXT 1-2 DAYS. Referrals: POLINA GALLEGO MD (PCP) Time of Disposition: 17:31 I have reviewed the case, and I agree with, Diagnosis and Plan HAYDEE GONZALEZ Apr 11, 2025 15:34
[2025-04-11 15:51] LABS: IMMATURE GRANULOCYTE ABSOLUTE 0.04 K/uL (0-1); NUCLEATED RED BLOOD CELLS 0.0 % (0.0-0.19); PLATELET COUNT (AUTO) 294 K/uL (130-400); RED BLOOD CELL COUNT(AUTO) 4.73 MIL/uL (4.00-5.50); RED CELL DISTRIBUTION WIDTH 14.8 % (11.0-15.5); WHITE BLOOD COUNT (AUTO) 7.0 K/uL (4.8-10.8)
--- NOTE | 2025-04-11 16:03 | NUR ---
PATIENT CARE ASSUMED AT THIS TIME. PATIENT RECIEVED FROM EMS WITHOUT TRIAGE ASSESSMENT COMPLETED.
--- NOTE | 2025-04-11 16:04 | EKG ---
[facility] Test Date: 2025-04-11 Test Time: 15:59:22 Pat Name: UMA LANDA Department: ED Room: Gender: F Direct Care Supervisor: [id number] : [id number] Requested By: HAYDEE GONZALEZ Order Number: [id number] Reading MD: Eduin Davis Measurements Intervals [place] Rate: 59 P: 55 MT: 132 QRS: 63 QRSD: 100 T: 69 QT: 440 QTc: 437 Interpretive Statements Sinus rhythm Probable left atrial enlargement Compared to ECG 10/05/2022 11:58:31 No significant changes Electronically Signed On 04-11-2025 16:14:13 CDT by Eduin Davis Please click the below link to view image of tracing.
[2025-04-11 16:07] LABS: CREATININE 0.8 mg/dL (0.5-1.0); GLOMERULAR FILTR. RATE CALC 79.0 mL/min (>90); GLUCOSE,RANDOM 154.0 mg/dL (70-105); SODIUM SERUM 134.0 mmol/L (136-145); UREA NITROGEN, BLOOD 30.0 mg/dL (7-18)
--- NOTE | 2025-04-11 16:50 | HMCIMG ---
SACRUM/COCCYX 2+VWS REASON: COCCYX PAIN STATUS POST FALL TECHNIQUE: 3 views of the sacrum were obtained. FINDINGS: There is normal appearance of the sacrum and coccyx. There are no visible fractures. SI joints appear normal as does the symphysis pubis. Soft tissues appear unremarkable as well. There is osteopenia of the osseous structure. There is disc disease with loss of disc height at L5-S1. IMPRESSION: 1. Normal views of the sacrum and coccyx. 2. Osteopenia 3. Disc disease with loss of disc height at L5-S1.
[2025-04-11] MEDS: 0.9%NACL 1000ML 1,000 ML IV ONE (16:57)
--- NOTE | 2025-04-11 17:30 | NUR ---
PATIENT HAS DECLINED TYLENOL AND DECILNED IV ACCESS PLACEMENT.
[2025-04-11 17:39] VITALS: BP 110/61; PULSE 70; RESP 21; TEMP 98.1; O2SAT 98
== END 2025-04-11 17:50 | disposition home or self-care (01) ==
LOC: EDH 15:29
DX: S30.0XXA Contusion of lower back and pelvis, initial encounter (principal); E86.0 Dehydration; E87.6 Hypokalemia; E11.65 Type 2 diabetes mellitus with hyperglycemia; F41.9 Anxiety disorder, unspecified; J44.9 Chronic obstructive pulmonary disease, unspecified; G25.81 Restless legs syndrome; Z88.0 Allergy status to penicillin; Z88.6 Allergy status to analgesic agent; Z88.8 Allergy status to other drugs, medicaments and biological substances; Z79.899 Other long term (current) drug therapy; Z79.891 Long term (current) use of opiate analgesic; Z79.51 Long term (current) use of inhaled steroids; Z79.02 Long term (current) use of antithrombotics/antiplatelets; W01.0XXA Fall on same level from slipping, tripping and stumbling without subsequent striking against object, initial encounter; Y93.89 Activity, other specified; Y92.89 Other specified places as the place of occurrence of the external cause; Y99.8 Other external cause status
CPT/HCPCS: 99285; 84484; 80048; 85025; 36415; 72220; 93005; J7030

== ENCOUNTER 2025-04-26 10:21 | Emergency (ER) | payer MEDICARE, MEDICAID ==
[~2025-04-26] VITALS: Ht 162.6 cm; Wt 56.7 kg
[2025-04-26 10:54] LABS: IMMATURE GRANULOCYTE ABSOLUTE 0.01 K/uL (0-1); NUCLEATED RED BLOOD CELLS 0.0 % (0.0-0.19); PLATELET COUNT (AUTO) 456 K/uL (130-400); RED BLOOD CELL COUNT(AUTO) 4.37 MIL/uL (4.00-5.50); RED CELL DISTRIBUTION WIDTH 15.1 % (11.0-15.5); WHITE BLOOD COUNT (AUTO) 4.7 K/uL (4.8-10.8)
[2025-04-26 11:08] LABS: INR 1.08 (0.85-1.15)
[2025-04-26 11:11] LABS: CREATINE KINASE, TOTAL 37.0 U/L (21-232); CREATININE 0.7 mg/dL (0.5-1.0); GLOMERULAR FILTR. RATE CALC 92.0 mL/min (>90); GLUCOSE,RANDOM 195.0 mg/dL (70-105); SODIUM SERUM 135.0 mmol/L (136-145); UREA NITROGEN, BLOOD 10.0 mg/dL (7-18)
[2025-04-26 11:14] LABS: SARS-CoV-2, RNA, NAAT NEGATIVE SARS CoV-2 (NEGATIVE)
[2025-04-26 11:20] LABS: INFLUENZA TYPE A Negative For Type A (NEGATIVE); INFLUENZA TYPE B Negative For Type B (NEGATIVE)
[2025-04-26 11:40] LABS: RAPID GROUP A STREP negative (NEGATIVE)
[2025-04-26 11:59] LABS: ADD UA MICROSCOPIC NO; APPEARANCE,URINE CLEAR (CLEAR); GLUCOSE, URINE (UA) NEGATIVE (NEGATIVE); LEUKOCYTE ESTERASE ,URINE NEGATIVE Leu/uL (NEGATIVE); NITRATE,URINE NEGATIVE (NEGATIVE); OCCULT BLOOD,URINE NEGATIVE (NEGATIVE)
--- NOTE | 2025-04-26 11:59 | HMCIMG ---
EXAM: CR Chest, 1 View. CLINICAL HISTORY: sob COMPARISON: None provided. FINDINGS: LUNGS: There is a cystic appearing structure measuring approximately 4.2 cm in diameter projecting just inferior to the medial aspect of the left clavicle. This may be a cystic lung lesion however could also be associated with the anterior aspect of the first rib and costochondral junction. Recommend follow-up. Dedicated CT of the chest would provide additional information. PLEURAL SPACES: Likely a small left pleural effusion. Lungs are otherwise clear. MEDIASTINUM: Cardiac size and mediastinal contours within normal limits. BONES: No aggressive appearing osseous lesion seen. IMPRESSION: Cystic-appearing structure just inferior to the medial aspect of the right clavicle which may represent a lung parenchymal lesion versus a bony lesion. CT of the chest could provide additional diagnostic information. Small left pleural effusion. Otherwise no definite acute chest disease. /[place]
[2025-04-26 12:23] VITALS: PULSE 60; RESP 18
--- NOTE | 2025-04-26 12:23 | ERN ---
General Chief Complaint: Shortness of Breath Stated Complaint: HAVING DIFFICULTY BREATHING THAT STARTED 2HRS AGO Time Seen by MD: 10:23 Source: patient History of Present Illness Initial Comments Patient is a 69-year-old female with a history of tobacco abuse coming in to be evaluated for shortness of breath. Per patient the symptoms began suddenly but she does has a history of tobacco use. No fever no chills. Allergies: Coded Allergies: Penicillins (Unverified Allergy, Severe, SWELLING, 08/21/19) aspirin (Unverified Allergy, Unknown, SWELLING, 08/21/19) warfarin (Unverified Allergy, Unknown, 02/06/22) wool (Unverified Allergy, Unknown, RASH, 08/21/19) Home Meds Active Scripts Sulfamethoxazole/Trimethoprim (Bactrim Ds Tablet) 1 Each Tablet, 1 TAB PO BID for 7 Days, #14 TAB 0 Refills Prov:NIRAJ WEINER 10/05/22 Albuterol Sulfate (Proair Hfa) 8.5 Gm Hfa.aer.ad, 2 PUFF IH QIDP, #1 INHALER Prov:EJ LAGUNA 02/06/22 D-Methorphan/PE/Acetaminophen (Theraflu Ms Severe Cold Pckt) 1 Each Powd.pack, 1 EACH PO QIDP, #20 PACK Prov:EJ LAGUNA 02/06/22 Cyclobenzaprine HCl (Flexeril) 10 Mg Tab, 10 MG PO BID, #30 TAB Prov:EJ LAGUNA 02/06/22 Naproxen (Naprosyn) 500 Mg Tablet, 500 MG PO BIDPC, #60 TAB Prov:EJ LAGUNA 02/06/22 Loratadine (Loratadine) 10 Mg Tablet, 10 MG PO DAILY for 30 Days, #30 TAB Prov:SANDRA HAAS MD 11/07/21 Fluticasone Propionate (Flonase Nasal [place]) 50 Mcg/[place], 50 MCG NASAL BID for 7 Days, #14 SPRAY Prov:SANDRA HAAS MD 11/07/21 Reported Medications Mirtazapine (Mirtazapine) 15 Mg Tab.rapdis, 15 MG PO HS, TAB 08/21/19 Hydrocodone/Acetaminophen ([place] 10-325 Tablet) 1 Each Tablet, 1 EACH PO TID, TAB 08/21/19 Clopidogrel Bisulfate (Plavix) 75 Mg Tablet, 75 MG PO DAILY, TAB 08/21/19 Pregabalin (Lyrica) 150 Mg Capsule, 150 MG PO BID, CAP 08/21/19 Alprazolam (Xanax) 1 Mg Tablet, 1 MG PO TID, TAB 08/21/19 Budesonide/Formoterol Fumarate (Symbicort 160-4.5 Mcg Inhaler) 10.2 Gm Hfa.aer.ad, 10.2 GM IH BID 08/21/19 Metformin HCl (Metformin HCl) 500 Mg Tablet, 500 MG PO DAILYBKFST, TAB 08/21/19 Ropinirole HCl (Ropinirole HCl) 2 Mg Tablet, 2 MG PO TID, TAB 08/21/19 Tiotropium [place] (Spiriva Respimat) 4 Gm Mist.inhal, 4 GM IH DAILY 08/21/19 Past Medical History Past Medical History: A-Fib, Anxiety, Bipolar, Bronchitis, COPD, Depression, Diabetes-Type II Medical History Other: Restless leg syndrome, BACK PAIN Past Surgical History: Hysterectomy Surgical History Other: RIGHT SHOULDER, KIDNEY SX Family History Family History: Negative Social History Social History: Negative Female( History) History: Not Applicable ROS Dictation CONSTITUTIONAL: No chills, no fever, no weakness, no diaphoresis, no malaise. HEAD/FACE: No signs of trauma. EENT: No eye pain, no blurred vision, no tearing, no double vision, no ear pain, no ear discharge, no nose pain, no nasal congestion, no throat pain, no throat swelling, no mouth pain. RESPIRATORY: No cough, no orthopnea, SOB, no stridor, no wheezing. CARDIOVASCULAR: No chest pain, no edema, no palpitations, no syncope. GASTROINTESTINAL/ABDOMINAL: No abdominal pain, no constipation, no diarrhea, no nausea, no vomiting. GENITOURINARY: No abnormal discharge, no dysuria, no frequent urination, no hematuria. No complaints of pain in the genitals. MUSCULOSKELETAL: No back pain, no gout, no joint pain, no joint swelling, no muscle pain, no muscle stiffness, no neck pain. INTEGUMENTARY: No change in color, no change in hair/nails, no dryness, no lesion, no lumps, no rash. NEUROLOGICAL/PSYCH: No anxiety, not depressed, no emotional problem, no headach e, no numbness, no pre-existing deficit, no history of seizures, no tremors, no weakness. HEMATOLOGIC/LYMPHATIC: Not anemic, no history of blood clots, no apparent bleeding, no bruising, glands not swollen. All Systems Negative, Except as Noted. Physical Exam Physical Exam Dictation VITAL SIGNS: Reviewed. GENERAL APPEARANCE: Alert, oriented x3, no acute distress, obese. HEAD AND FACE: Non-traumatic. EYES: PERRL, pink conjunctivas, eyelid no trauma, anterior chamber clear. EARS: Pinnas intact and no signs of trauma or erythema. Ear canals clear and no discharge. TMs no erythema. NOSE: No discharge, no bleeding. OROPHARYNX: Mouth normal, teeth no caries, tongue pink. Pharynx clear, no erythema. Tonsils no exudates, no abscesses noted. Mucous membrane moist. NECK: Supple, non-tender, no thyromegaly, no masses, no JVD, no bruits. BREAST: Deferred. CHEST: No tenderness, no crepitus, no paradoxical movement, no retractions. LUNGS: Clear, well-ventilated, symmetric, no rales, no wheezing, no rhonchi, no stridor, good breath sounds bilaterally. HEART: Regular rate, regular rhythm, no murmur, no gallops. VASCULAR: No peripheral edema. ABDOMEN: Soft, positive bowel sounds, nondistended, no guarding, nontender, no rebound, no masses no hepatomegaly, no splenomegaly, no Ruano's sign, no hernias. RECTAL: Deferred. GENITAL: Deferred. NEUROLOGICAL: Normal speech, gross motor function intact, gross sensory function intact. MUSCULOSKELETAL: Neck nontender, full range of motion, back nontender, full range of motion. EXTREMITIES: Nontender, full range of motion. SKIN: Color pink, dry, no turgor, no rash, no lacerations, no abrasions, no contusions. LYMPHATICS: Deferred. Results Laboratory and Microbiology Lab and Micro Result Laboratory Tests Test 04/26/25 10:47 04/26/25 10:55 04/26/25 11:25 White Blood Count 4.7 K/uL (4.8-10.8) L Red Blood Count 4.37 MIL/uL (4.00-5.50) Hemoglobin 12.2 g/dL (12.0-16.0) Hematocrit 39.2 % (36-48) Mean Corpuscular Volume 89.7 fL (79-99) Mean Corpuscular Hemoglobin 27.9 pg (27.0-33.0) Mean Corpuscular Hemoglobin Concent 31.1 g/dL (32.0-36.0) L Red Cell Distribution Width 15.1 % (11.0-15.5) Platelet Count 456 K/uL (130-400) H Mean Platelet Volume 8.7 fL (7.5-10.5) Immature Granulocyte % (Auto) 0.2 % (0-1) Neutrophils (%) (Auto) 65.3 % (40.0-77.0) Lymphocytes (%) (Auto) 22.4 % (21.0-51.0) Monocytes (%) (Auto) 8.2 % (3.0-13.0) Eosinophils (%) (Auto) 3.0 % (0.0-8.0) Basophils (%) (Auto) 0.9 % (0.0-5.0) Neutrophils # (Auto) 3.0 K/uL (1.8-7.7) Lymphocytes # (Auto) 1.0 K/uL (1.0-4.8) Monocytes # (Auto) 0.4 K/uL (0.1-1.0) Eosinophils # (Auto) 0.14 K/uL (0.00-0.70) Basophils # (Auto) 0.04 K/uL (0.00-0.20) Absolute Immature Granulocyte (auto 0.01 K/uL (0-1) Nucleated Red Blood Cells 0.0 % (0.0-0.19) Prothrombin Time 11.4 SEC (9.6-11.6) Prothromb Time International Ratio 1.08 (0.85-1.15) Activated Partial Thromboplast Time 28.5 SEC (26.3-35.5) Sodium Level 135 mmol/L (136-145) L Potassium Level 3.0 mmol/L (3.5-5.1) *L Chloride Level 100 mmol/L (101-111) L Carbon Dioxide Level 30 mmol/L (21-32) Blood Urea Nitrogen 10 mg/dL (7-18) Creatinine 0.7 mg/dL (0.5-1.0) Glomerular Filtration Rate Calc 92 mL/min (>90) Random Glucose 195 mg/dL (70-105) H Total Calcium 8.8 mg/dL (8.5-10.1) Magnesium Level 1.80 mg/dL (1.80-2.40) Total Creatine Kinase 37 U/L (21-232) # Troponin I High Sensitivity 20 ng/L (4-50) B-Type Natriuretic Peptide 88 pg/mL (0-100) Influenza Type A Antigen Negative For Type A Influenza Type B Antigen Negative For Type B SARS-CoV-2, RNA, NAAT NEGATIVE SARS CoV-2 Group A Streptococcus Rapid negative (NEGATIVE) Urine Color LIGHT-YELLOW (YELLOW) Urine Appearance CLEAR (CLEAR) Urine pH 6.0 (5.0-8.0) Urine Specific [place] 1.007 (1.001-1.031) Urine Protein NEGATIVE mg/dL (NEGATIVE) Urine Glucose (UA) NEGATIVE mg/dL (NEGATIVE) Urine Ketones NEGATIVE mg/dL (NEGATIVE) Urine Occult Blood NEGATIVE (NEGATIVE) Urine Nitrate NEGATIVE (NEGATIVE) Urine Bilirubin NEGATIVE mg/dL (NEGATIVE) Urine Urobilinogen 0.2 mg/dL (0.2-1.0) Urine Leukocyte Esterase NEGATIVE Elvis/uL Labs Reviewed?: Yes EKG/XRAY/US/CT/MRI EKG Comment 04/26/2025 time 10:28 a.m. Ventricular rate 66 Sinus rhythm [place] [address] wave elevation or depression X-RAY Comment IMAGING REPORT Signed PATIENT: UMA LANDA MR#: [id number] : 1955 SEX: F AGE: 69 LOCATION: [facility] ORDER [id number] STATUS: REG REPORT#: [id number] SERVICE 1030 REASON: sob ORDERING PHYSICIAN: SANDRA HAAS MD PROCEDURE: CXR1VW - CHEST 1VW EXAM: CR Chest, 1 View. CLINICAL HISTORY: sob COMPARISON: None provided. FINDINGS: LUNGS: There is a cystic appearing structure measuring approximately 4.2 cm in diameter projecting just inferior to the medial aspect of the left clavicle. This may be a cystic lung lesion however could also be associated with the anterior aspect of the first rib and costochondral junction. Recommend follow-up. Dedicated CT of the chest would provide additional information. PLEURAL SPACES: Likely a small left pleural effusion. Lungs are otherwise clear. MEDIASTINUM: Cardiac size and mediastinal contours within normal limits. BONES: No aggressive appearing osseous lesion seen. IMPRESSION: Cystic-appearing structure just inferior to the medial aspect of the right clavicle which may represent a lung parenchymal lesion versus a bony lesion. CT of the chest could provide additional diagnostic information. Small left pleural effusion. Otherwise no definite acute chest disease. /[place] DICTATED BY: ELDA LOAIZA Jr., MD DATE: 04/26/25 1257 ELECTRONICALLY SIGNED BY: ELDA LOAIZA Jr., MD DATE: 04/26/25 1257 MDM MDM: Differential diagnosis: Shortness of breath, history of tobacco use, COPD, pleural effusion, Rationale: Tests considered and ordered secondary to shared decision making include: Previous outside records reviewed: Old ER visits. Risk of complication and/or morbidity or mortality of patient management: None Medications-Per medication reconciliation Need for hospitalization: Patient does not meet criteria for hospitalization. Need for emergency major/minor surgery: No Patient is a 69-year-old female coming in complaining of shortness of breath. Patient does state that she has a an avid smoker and presented with shortness of breath momentarily. Laboratory workup hypokalemia potassium was replaced. Patient has a received a breathing treatments states he feels better we will be discharged in stable condition. Patient is also tolerating oral intake states he feels hungry and wanted to eat. ED Course Orders Procedure Category Date Status Time Cbc With Differential LAB 04/26/25 Complete 10:30 Prothrombin Time With LAB 04/26/25 Complete INR 10:30 Chest 1vw RAD 04/26/25 Resulted 10:30 12 Lead Ekg Tracing- EKG 04/26/25 Logged Technical 10:30 Magnesium LAB 04/26/25 Complete 10:30 Creatine Kinase, Total LAB 04/26/25 Complete 10:30 Troponin I High LAB 04/26/25 Complete Sensitivity 10:30 Urinalysis Profile LAB 04/26/25 Complete 10:30 Partial LAB 04/26/25 Complete Thromboplastin Time 10:30 Basic Metabolic Panel LAB 04/26/25 Complete 10:30 B-Type Natriuretic LAB 04/26/25 Complete Peptide 10:30 Covid Rna Naat LAB 04/26/25 Complete 10:30 Influenza Type A & B, LAB 04/26/25 Complete Rapid 10:30 Rapid (Group A Strep) LAB 04/26/25 Complete 10:30 Potassium Bicarb/Cit PHA 04/26/25 Complete Ac 25meq (K-Lyte Ta 11:30 Magnesium LAB 04/26/25 Complete 11:24 Ipratropium/Albuterol PHA 04/26/25 Complete Neb (Duoneb) 12:30 Ipratropium/Albuterol PHA 04/26/25 Complete Neb (Duoneb) 18:00 Current Medications Medications (Trade) Dose Ordered Sig/Franco Route PRN Reason Start Time Stop Time Status Last Admin Dose Admin Albuterol (DUOneb) 1 UDVIAL ONCE ONCE IH 04/26/25 12:30 04/26/25 12:31 DC 04/26/25 12:27 Albuterol (DUOneb) 2 udvial [id number] IH 04/26/25 18:00 04/26/25 12:29 DC Potassium Bicarbonate (K-Lyte Tablet Eff 25 Meq Tablet.eff) 50 meq ONCE ONCE PO 04/26/25 11:30 04/26/25 11:31 DC 04/26/25 11:31 Vital Signs Date Time Temp Pulse Resp B/P (MAP) Pulse Ox O2 Delivery O2 Flow Rate FiO2 04/26/25 12:50 97.5 63 21 97/55 96 Room Air* 0 21 04/26/25 12:23 60 18 04/26/25 10:54 97.5 58 28 97/72 100 Room Air* 0 04/26/25 10:35 97.9 64 18 91/59 96 0 DX & DISP Disposition: Discharge Departure Impression: Primary Impression: Hypokalemia Additional Impression: COPD (chronic obstructive pulmonary disease) Condition: Stable Scripts Albuterol Sulfate (Ventolin Hfa) 90 Mcg Hfa.aer.ad 2 PUFF IH Q4HPRN PRN for wheezing for 30 Days, #18 GM 0 Refills Prov: SANDRA HAAS MD 04/26/25 Potassium Chloride (K-Dur/Klor-Con) 10 Meq Ertab 1 TAB PO DAILY for 10 Days, #10 TAB 0 Refills Prov: SANDRA HAAS MD 04/26/25 Additional Instructions: FOLLOW-UP WITH PRIMARY CARE PROVIDER IN 1 TO 2 DAYS. TAKE MEDICATIONS DIRECTED HERE IN THE EMERGENCY ROOM. OKAY TO CONTINUE HOME MEDICATIONS UNLESS OTHERWISE DISCUSSED DURING YOUR VISIT IN THE EMERGENCY ROOM TODAY. RETURN TO YOUR NEAREST EMERGENCY ROOM IF SYMPTOMS WORSEN OR IF THERE IS NO IMPROVEMENT. CALL 911 IF YOU NEED IMMEDIATE ASSISTANCE. TAKE TYLENOL [id number] NEEDED AND IF NO CONTRAINDICATIONS ARE PRESENT. INCREASE ORAL HYDRATION. A WOUND CULTURE OR URINE CULTURE WAS ORDERED HERE IN THE EMERGENCY ROOM DEPARTMENT PLEASE FOLLOW-UP WITH PRIMARY CARE PROVIDER AND ADVISE THEM TO GET REPORTS FROM OUR FACILITY. IF YOU HAD ANY MALATHI WRAP/SPLINTS THAT WERE APPLIED HERE, PLEASE DO NOT REMOVE THEM UNTIL YOU SEE YOUR PRIMARY CARE OR SPECIALTY. Referrals: Referrals: POLINA GALLEGO MD (PCP) Time of Disposition: 12:44 SANDRA HAAS MD Apr 26, 2025 12:23
[2025-04-26 12:50] VITALS: BP 97/55; PULSE 63; RESP 21; TEMP 97.5; O2SAT 96
[2025-04-26] MEDS ORDERED: POTA-187 PO (12:59)
[2025-04-26] MEDS ORDERED: ALBU18HF7 IH (12:59)
--- NOTE | 2025-04-26 15:23 | EKG ---
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
== END 2025-04-26 13:05 | disposition home or self-care (01) ==
LOC: EDH 10:21
DX: E87.6 Hypokalemia (principal); J44.9 Chronic obstructive pulmonary disease, unspecified; I48.91 Unspecified atrial fibrillation; G25.81 Restless legs syndrome; F41.9 Anxiety disorder, unspecified; F31.9 Bipolar disorder, unspecified; E11.9 Type 2 diabetes mellitus without complications; Z88.0 Allergy status to penicillin; Z88.6 Allergy status to analgesic agent; Z79.891 Long term (current) use of opiate analgesic; Z79.51 Long term (current) use of inhaled steroids; Z79.02 Long term (current) use of antithrombotics/antiplatelets; Z79.899 Other long term (current) drug therapy; Z72.0 Tobacco use; Z90.710 Acquired absence of both cervix and uterus; Z20.822 Contact with and (suspected) exposure to COVID-19
CPT/HCPCS: 99285; 82550; 83735 ×2; 84484; 80048; 83880; 80305; 85025; 85610; 85730; 87086; 87880; 87804 ×2; 81003; 81001; 36415 ×2; 87635; 71045; 99283; 93005; 94640; G0481

== ENCOUNTER 2025-04-26 14:22 | Emergency (ER) | payer MEDICARE, MEDICAID ==
[~2025-04-26] VITALS: Ht 162.6 cm; Wt 63.5 kg
[~2025-04-26 14:22] MED LIST changes: +ALBU18HF7 IH; +POTA-187 PO
--- NOTE | 2025-04-26 14:30 | NUR ---
SITTER NOTE: PLEASE REFER TO 1:1 SITTER NOTES
[2025-04-26 15:17] LABS: ALCOHOL, BLOOD < 3 mg/dL (0-10)
--- NOTE | 2025-04-26 16:23 | ERN ---
General Chief Complaint: Psych Evaluation Stated Complaint: FEELINGS OF WANTING TO Time Seen by MD: 14:27 Source: patient History of Present Illness Initial Comments Patient is a 69-year-old female coming in to be evaluated for suicidal ideation. Per patient she does not has a complete plan but states he does not want to live anymore. Patient was seen earlier for shortness of breath secondary to tobacco abuse secondary to COPD. Patient received breathing treatment was feeling better. Allergies: Coded Allergies: Penicillins (Unverified Allergy, Severe, SWELLING, 08/21/19) aspirin (Unverified Allergy, Unknown, SWELLING, 08/21/19) warfarin (Unverified Allergy, Unknown, 02/06/22) wool (Unverified Allergy, Unknown, RASH, 08/21/19) Home Meds Active Scripts Albuterol Sulfate (Ventolin Hfa) 90 Mcg Hfa.aer.ad, 2 PUFF IH Q4HPRN PRN for wheezing for 30 Days, #18 GM 0 Refills Prov:SANDRA HAAS MD 04/26/25 Potassium Chloride (K-Dur/Klor-Con) 10 Meq Ertab, 1 TAB PO DAILY for 10 Days, #10 TAB 0 Refills Prov:SANDRA HAAS MD 04/26/25 Sulfamethoxazole/Trimethoprim (Bactrim Ds Tablet) 1 Each Tablet, 1 TAB PO BID for 7 Days, #14 TAB 0 Refills Prov:NIRAJ WEINER 10/05/22 Albuterol Sulfate (Proair Hfa) 8.5 Gm Hfa.aer.ad, 2 PUFF IH QIDP, #1 INHALER Prov:EJ LAGUNA 02/06/22 D-Methorphan/PE/Acetaminophen (Theraflu Ms Severe Cold Pckt) 1 Each Powd.pack, 1 EACH PO QIDP, #20 PACK Prov:EJ LAGUNA 02/06/22 Cyclobenzaprine HCl (Flexeril) 10 Mg Tab, 10 MG PO BID, #30 TAB Prov:EJ LAGUNA 02/06/22 Naproxen (Naprosyn) 500 Mg Tablet, 500 MG PO BIDPC, #60 TAB Prov:EJ LAGUNA 02/06/22 Loratadine (Loratadine) 10 Mg Tablet, 10 MG PO DAILY for 30 Days, #30 TAB Prov:SANDRA HAAS MD 11/07/21 Fluticasone Propionate (Flonase Nasal [place]) 50 Mcg/[place], 50 MCG NASAL BID for 7 Days, #14 SPRAY Prov:SANDRA HAAS MD 11/07/21 Reported Medications Mirtazapine (Mirtazapine) 15 Mg Tab.rapdis, 15 MG PO HS, TAB 08/21/19 Hydrocodone/Acetaminophen ([place] 10-325 Tablet) 1 Each Tablet, 1 EACH PO TID, TAB 08/21/19 Clopidogrel Bisulfate (Plavix) 75 Mg Tablet, 75 MG PO DAILY, TAB 08/21/19 Pregabalin (Lyrica) 150 Mg Capsule, 150 MG PO BID, CAP 08/21/19 Alprazolam (Xanax) 1 Mg Tablet, 1 MG PO TID, TAB 08/21/19 Budesonide/Formoterol Fumarate (Symbicort 160-4.5 Mcg Inhaler) 10.2 Gm Hfa.aer.a d, 10.2 GM IH BID 08/21/19 Metformin HCl (Metformin HCl) 500 Mg Tablet, 500 MG PO DAILYBKFST, TAB 08/21/19 Ropinirole HCl (Ropinirole HCl) 2 Mg Tablet, 2 MG PO TID, TAB 08/21/19 Tiotropium [place] (Spiriva Respimat) 4 Gm Mist.inhal, 4 GM IH DAILY 08/21/19 Past Medical History Past Medical History: A-Fib, Anxiety, Bipolar, Bronchitis, COPD, Depression, Diabetes-Type II Medical History Other: Restless leg syndrome, BACK PAIN Past Surgical History: Hysterectomy Surgical History Other: RIGHT SHOULDER, KIDNEY SX Family History Family History: Negative Social History Social History: Negative Female( History) History: Not Applicable ROS Dictation CONSTITUTIONAL: No chills, no fever, no weakness, no diaphoresis, malaise. HEAD/FACE: No signs of trauma. EENT: No eye pain, no blurred vision, no tearing, no double vision, no ear pain, no ear discharge, no nose pain, no nasal congestion, no throat pain, no throat swelling, no mouth pain. RESPIRATORY: No cough, no orthopnea, no SOB, no stridor, no wheezing. CARDIOVASCULAR: No chest pain, no edema, no palpitations, no syncope. GASTROINTESTINAL/ABDOMINAL: No abdominal pain, no constipation, no diarrhea, no nausea, no vomiting. GENITOURINARY: No abnormal discharge, no dysuria, no frequent urination, no hematuria. No complaints of pain in the genitals. MUSCULOSKELETAL: No back pain, no gout, no joint pain, no joint swelling, no muscle pain, no muscle stiffness, no neck pain. INTEGUMENTARY: No change in color, no change in hair/nails, no dryness, no lesion, no lumps, no rash. NEUROLOGICAL/PSYCH: No anxiety, not depressed, no emotional problem, no headache, no numbness, no pre-existing deficit, no history of seizures, no tremors, no weakness. HEMATOLOGIC/LYMPHATIC: Not anemic, no history of blood clots, no apparent bleeding, no bruising, glands not swollen. All Systems Negative, Except as Noted. Physical Exam Physical Exam Dictation VITAL SIGNS: Reviewed. GENERAL APPEARANCE: Alert, oriented x3, no acute distress, obese. HEAD AND FACE: Non-traumatic. EYES: PERRL, pink conjunctivas, eyelid no trauma, anterior chamber clear. EARS: Pinnas intact and no signs of trauma or erythema. Ear canals clear and no discharge. TMs no erythema. NOSE: No discharge, no bleeding. OROPHARYNX: Mouth normal, teeth no caries, tongue pink. Pharynx clear, no erythema. Tonsils no exudates, no abscesses noted. Mucous membrane moist. NECK: Supple, non-tender, no thyromegaly, no masses, no JVD, no bruits. BREAST: Deferred. CHEST: No tenderness, no crepitus, no paradoxical movement, no retractions. LUNGS: Clear, well-ventilated, symmetric, no rales, no wheezing, no rhonchi, no stridor, good breath sounds bilaterally. HEART: Regular rate, regular rhythm, no murmur, no gallops. VASCULAR: No peripheral edema. ABDOMEN: Soft, positive bowel sounds, nondistended, no guarding, nontender, no rebound, no masses no hepatomegaly, no splenomegaly, no Ruano's sign, no hernias. RECTAL: Deferred. GENITAL: Deferred. NEUROLOGICAL: Normal speech, gross motor function intact, gross sensory function intact. MUSCULOSKELETAL: Neck nontender, full range of motion, back nontender, full range of motion. EXTREMITIES: Nontender, full range of motion. SKIN: Color pink, dry, no turgor, no rash, no lacerations, no abrasions, no contusions. LYMPHATICS: Deferred. Results Laboratory and Microbiology Lab and Micro Result Laboratory Tests Test 04/26/25 10:47 04/26/25 16:07 Salicylates Level 4.1 mg/dL (2.8-20.0) Acetaminophen Level < 1 mcg/mL (10-30) L Serum Alcohol < 3 mg/dL (0-10) Urine Color YELLOW (YELLOW) Urine Appearance HAZY (CLEAR) Urine pH 6.5 (5.0-8.0) Urine Specific [place] 1.015 (1.001-1.031) Urine Protein 10 mg/dL (NEGATIVE) H Urine Glucose (UA) NEGATIVE mg/dL (NEGATIVE) Urine Ketones NEGATIVE mg/dL (NEGATIVE) Urine Occult Blood NEGATIVE (NEGATIVE) Urine Nitrate NEGATIVE (NEGATIVE) Urine Bilirubin NEGATIVE mg/dL (NEGATIVE) Urine Urobilinogen 0.2 mg/dL (0.2-1.0) Urine Leukocyte Esterase 250 Elvis/uL (NEGATIVE) H Urine RBC 0-1 /HPF (0-1) Urine WBC 11-25 /HPF (0-1) H Urine Squamous Epithelial Cells MANY /HPF (0-2) Urine Calcium Oxalate Crystals RARE /LPF (None Seen) Urine Bacteria FEW /HPF (None Seen) Urine Opiates Screen NEGATIVE (NEGATIVE) Urine Barbiturates Screen NEGATIVE (NEGATIVE) Urine Phencyclidine Screen NEGATIVE (NEGATIVE) Urine Amphetamines Screen NEGATIVE (NEGATIVE) Urine Benzodiazepines Screen NEGATIVE (NEGATIVE) Urine Cocaine Screen POSITIVE (NEGATIVE) H Urine Marijuana (THC) Screen POSITIVE (NEGATIVE) H Labs Reviewed?: Yes MDM MDM: Differential diagnosis: Suicidal ideation, depression, anxiety, psychiatric illness, Rationale: Tests considered and ordered secondary to shared decision making include: Previous outside records reviewed: Old ER visits. Risk of complication and/or morbidity or mortality of patient management: None Medications-Per medication reconciliation Need for hospitalization: Patient does not meet criteria for hospitalization. Need for emergency major/minor surgery: No There are no social concerns with this patient. Prescription drug management Prescriptions will include symptomatic care Patient's prior external medical records from other ER visits were reviewed by me as indicated. Prior testing and results from previous visits were reviewed. Prior tests were taken into account with medical decision making and resource utilization, independent historian/historians were used to obtain complete medical history. I independently interpreted the test that were performed, results were reviewed by me and considered findings on radiology if ordered. Medical management and examination interpretation discussions were had by me with other qualified healthcare professionals as indicated for the patient's care. 193: Patient care was transitioned to wi pending completion of behavior health evaluation. She had been seen earlier then after discharge to come back stating suicidal ideations. Labs from previous visits were reviewed and labs from this visit were also reviewed. She was evaluated by [facility]. No criteria for inpatient admission. They will do outpatient follow up. Patient discharged ED Course Orders Procedure Category Date Status Time One To One Sitter CPOE 04/26/25 Transmitted 14:34 Urinalysis Profile LAB 04/26/25 Complete 14:34 Acetaminophen LAB 04/26/25 Complete 14:34 Salicylate LAB 04/26/25 Complete 14:34 Alcohol, Blood LAB 04/26/25 Complete 14:34 Drug Screen Urine LAB 04/26/25 Complete 14:34 Culture Urine FELICITY 04/26/25 In Process 16:43 Vital Signs Date Time Temp Pulse Resp B/P (MAP) Pulse Ox O2 Delivery O2 Flow Rate FiO2 04/26/25 14:25 97.9 66 18 93/64 98 Room Air 0 DX & DISP Disposition: Discharge Departure Impression: Primary Impression: Suicidal ideation Condition: Stable Additional Instructions: [facility] up with [facility] Referrals: POLINA GALLEGO MD (PCP) SANDRA HAAS MD Apr 26, 2025 16:23 RAMIN MONTIEL MD Apr 26, 2025 19:34
[2025-04-26 16:38] LABS: GLUCOSE, URINE (UA) NEGATIVE (NEGATIVE); LEUKOCYTE ESTERASE ,URINE 250 Leu/uL (NEGATIVE); NITRATE,URINE NEGATIVE (NEGATIVE); OCCULT BLOOD,URINE NEGATIVE (NEGATIVE)
[2025-04-26 16:42] LABS: APPEARANCE,URINE HAZY (CLEAR)
[2025-04-26 16:43] LABS: ADD UA MICROSCOPIC YES
[2025-04-26 16:49] LABS: AMPHET/METH SCREEN,URINE NEGATIVE (NEGATIVE); BARBITURATE SCREEN, URINE NEGATIVE (NEGATIVE); CANNABINOID SCREEN,URINE POSITIVE (NEGATIVE); COCAINE SCREEN,URINE POSITIVE (NEGATIVE)
[2025-04-26 16:54] LABS: CALCIUM OXALATE CRYSTALS,UR RARE /LPF (None Seen); SQUAMOUS EPITHELIAL CELL,UR MANY /HPF (0-2)
--- NOTE | 2025-04-26 17:15 | NUR ---
PT WAS PROVIDED A DINNER MEAL TO EAT
--- NOTE | 2025-04-26 17:23 | NUR ---
[facility] CONSULT: I SPOKE AND GAVE INFORMATION TO MARIS WHO IS GOING TO HAVE ONE OF THE SCREENERS CALL ME BACK.
--- NOTE | 2025-04-26 18:20 | NUR ---
CHANI NICOLE SCREENER: THE SCREENER JUST ARRIVED AND WAS PROVIDED NECESSARY INFORMATION TO START AND COMPLETE HER PATIENT ASSESSMENT.
--- NOTE | 2025-04-26 19:42 | NUR ---
PER Lorene JASSO SCREENER WITH [facility], PATIENT DOES NOT MEET CRITERIA FOR INPATIENT SERVICES
[2025-04-26 19:58] VITALS: BP 103/64; PULSE 65; RESP 16; TEMP 98.1; O2SAT 98
== END 2025-04-26 19:59 | disposition home or self-care (01) ==
LOC: EDH 14:22
DX: R45.851 Suicidal ideations (principal); E11.9 Type 2 diabetes mellitus without complications; F31.9 Bipolar disorder, unspecified; F41.9 Anxiety disorder, unspecified; I48.91 Unspecified atrial fibrillation; J44.9 Chronic obstructive pulmonary disease, unspecified; G25.81 Restless legs syndrome; Z90.710 Acquired absence of both cervix and uterus; Z88.0 Allergy status to penicillin; Z88.6 Allergy status to analgesic agent; Z88.8 Allergy status to other drugs, medicaments and biological substances; Z79.899 Other long term (current) drug therapy; Z79.891 Long term (current) use of opiate analgesic; Z79.51 Long term (current) use of inhaled steroids; Z79.02 Long term (current) use of antithrombotics/antiplatelets; Z72.0 Tobacco use
CPT/HCPCS: 99283; 80305; 87086; 81001; 36415; G0481

== ENCOUNTER 2025-04-27 01:48 | Emergency (ER) | payer MEDICARE, MEDICAID ==
[~2025-04-27] VITALS: Ht 162.6 cm; Wt 63.5 kg
--- NOTE | 2025-04-27 02:06 | ERN ---
General Chief Complaint: Other Problems Stated Complaint: HOMELESS, HAS NO PLACE TO GO AFTER DISCHARG Time Seen by MD: 01:53 History of Present Illness Initial Comments Patient was seen sleeping outside on the grass and brought in by staff. Patient was seen earlier twice in the day. Last visit was after she was seen and discharged and then she came back stating that she was suicidal. She was then evaluated by [facility] without indications for admission. Patient was presented back her for evaluation. Patient states she has been homeless for several months. This happened about three months ago. She did stay a few days at [facility] and patient is but read out of finances. She states it was still her Jessie cards. She also has a sister although she has not been in touch with her sister for more than a year. No other changes have been noted. Allergies: Coded Allergies: Penicillins (Unverified Allergy, Severe, SWELLING, 08/21/19) aspirin (Unverified Allergy, Unknown, SWELLING, 08/21/19) warfarin (Unverified Allergy, Unknown, 02/06/22) wool (Unverified Allergy, Unknown, RASH, 08/21/19) Home Meds Active Scripts Albuterol Sulfate (Ventolin Hfa) 90 Mcg Hfa.aer.ad, 2 PUFF IH Q4HPRN PRN for wheezing for 30 Days, #18 GM 0 Refills Prov:SANDRA HAAS MD 04/26/25 Potassium Chloride (K-Dur/Klor-Con) 10 Meq Ertab, 1 TAB PO DAILY for 10 Days, #10 TAB 0 Refills Prov:SANDRA HAAS MD 04/26/25 Sulfamethoxazole/Trimethoprim (Bactrim Ds Tablet) 1 Each Tablet, 1 TAB PO BID for 7 Days, #14 TAB 0 Refills Prov:NIRAJ WEINER 10/05/22 Albuterol Sulfate (Proair Hfa) 8.5 Gm Hfa.aer.ad, 2 PUFF IH QIDP, #1 INHALER Prov:EJ LAGUNA 02/06/22 D-Methorphan/PE/Acetaminophen (Theraflu Ms Severe [place] Pckt) 1 Each Powd.pack, 1 EACH PO QIDP, #20 PACK Prov:EJ LAGUNA 02/06/22 Cyclobenzaprine HCl (Flexeril) 10 Mg Tab, 10 MG PO BID, #30 TAB Prov:EJ LAGUNA 02/06/22 Naproxen (Naprosyn) 500 Mg Tablet, 500 MG PO BIDPC, #60 TAB Prov:EJ LAGUNA 02/06/22 Loratadine (Loratadine) 10 Mg Tablet, 10 MG PO DAILY for 30 Days, #30 TAB Prov:SANDRA HAAS MD 11/07/21 Fluticasone Propionate (Flonase Nasal [place]) 50 Mcg/[place], 50 MCG NASAL BID for 7 Days, #14 SPRAY Prov:SANDRA HAAS MD 11/07/21 Reported Medications Mirtazapine (Mirtazapine) 15 Mg Tab.rapdis, 15 MG PO HS, TAB 08/21/19 Hydrocodone/Acetaminophen ([place] 10-325 Tablet) 1 Each Tablet, 1 EACH PO TID, TAB 08/21/19 Clopidogrel Bisulfate (Plavix) 75 Mg Tablet, 75 MG PO DAILY, TAB 08/21/19 Pregabalin (Lyrica) 150 Mg Capsule, 150 MG PO BID, CAP 08/21/19 Alprazolam (Xanax) 1 Mg Tablet, 1 MG PO TID, TAB 08/21/19 Budesonide/Formoterol Fumarate (Symbicort 160-4.5 Mcg Inhaler) 10.2 Gm Hfa.aer.ad, 10.2 GM IH BID 08/21/19 Metformin HCl (Metformin HCl) 500 Mg Tablet, 500 MG PO DAILYBKFST, TAB 08/21/19 Ropinirole HCl (Ropinirole HCl) 2 Mg Tablet, 2 MG PO TID, TAB 08/21/19 Tiotropium [place] (Spiriva Respimat) 4 Gm Mist.inhal, 4 GM IH DAILY 08/21/19 Past Medical History Past Medical History: A-Fib, Anxiety, Bipolar, Bronchitis, COPD, Depression, Diabetes-Type II Medical History Other: Restless leg syndrome, BACK PAIN Past Surgical History: Hysterectomy Surgical History Other: RIGHT SHOULDER, KIDNEY SX Family History Family History: Negative Social History Social History: Negative Female( History) History: Not Applicable ROS Dictation Ten systems reviewed and negative except as noted in HPI Physical Exam Physical Exam Dictation GEN: non toxic, NAD HEENT: atrumatic, PERRL, EOMI, conjunctivae normal NECK: Soft supple nontender Heart RRR, no murmurs Chest: No deformity Lungs: Lungs clear to auscultation Ab: Soft nondistended nontender Back: No midline step-offs. No gross deformity. No CVA tenderness : m/s: Moving all four extremities. No gross deformity Neuro: CN 2-12 intact. Moving all four extremities. Psych: Cooperative MDM Patient is suffering from homelessness. Was already seen by [facility] and evaluated without indication for inpatient admission. Patient was alert in the ED and slept restfully without further incident. Discharged in the a.m.. ED Course Vital Signs Date Time Temp Pulse Resp B/P (MAP) Pulse Ox O2 Delivery O2 Flow Rate FiO2 04/27/25 04:40 53 14 103/61 97 Room Air* 0 21 04/27/25 01:59 97.3 56 16 139/76 97 Room Air 0 DX & DISP Disposition: Discharge Departure Impression: Primary Impression: Homelessness Condition: Stable Referrals: POLINA GALLEGO MD (PCP) RAMIN MONTIEL MD Apr 27, 2025 02:06
[2025-04-27 06:41] VITALS: BP 119/65; PULSE 57; RESP 16; TEMP 97.8; O2SAT 97
== END 2025-04-27 06:43 | disposition home or self-care (01) ==
LOC: EDH 01:48
DX: I48.91 Unspecified atrial fibrillation (principal); F41.9 Anxiety disorder, unspecified; F31.9 Bipolar disorder, unspecified; E11.9 Type 2 diabetes mellitus without complications; J44.9 Chronic obstructive pulmonary disease, unspecified; G25.81 Restless legs syndrome; Z79.02 Long term (current) use of antithrombotics/antiplatelets; Z79.51 Long term (current) use of inhaled steroids; Z79.891 Long term (current) use of opiate analgesic; Z59.00 Homelessness unspecified; Z79.899 Other long term (current) drug therapy; Z88.0 Allergy status to penicillin; Z88.6 Allergy status to analgesic agent; Z90.710 Acquired absence of both cervix and uterus; Z79.01 Long term (current) use of anticoagulants
CPT/HCPCS: 99282

== ENCOUNTER 2025-04-29 19:32 | Emergency (ER) | payer MEDICARE, MEDICAID ==
[~2025-04-29] VITALS: Ht 167.6 cm; Wt 45.4 kg
[2025-04-29 20:31] LABS: IMMATURE GRANULOCYTE ABSOLUTE 0.05 K/uL (0-1); NUCLEATED RED BLOOD CELLS 0.0 % (0.0-0.19); PLATELET COUNT (AUTO) 398 K/uL (130-400); RED BLOOD CELL COUNT(AUTO) 3.64 MIL/uL (4.00-5.50); RED CELL DISTRIBUTION WIDTH 15.3 % (11.0-15.5); WHITE BLOOD COUNT (AUTO) 7.0 K/uL (4.8-10.8)
[2025-04-29 20:42] LABS: CREATININE 0.7 mg/dL (0.5-1.0); GLOMERULAR FILTR. RATE CALC 92.0 mL/min (>90); GLUCOSE,RANDOM 108.0 mg/dL (70-105); SODIUM SERUM 137.0 mmol/L (136-145); UREA NITROGEN, BLOOD 21.0 mg/dL (7-18)
--- NOTE | 2025-04-29 22:42 | HMCIMG ---
EXAM: CT Head without IV contrast. CLINICAL HISTORY: Fall, head injury. TECHNIQUE: Axial computed tomography images of the brain without intravenous contrast. COMPARISON: None. FINDINGS: BRAIN: No evidence of acute hemorrhage. No mass lesion. No CT evidence for acute territorial infarct. No midline shift or extra-axial collections. Atrophy. Periventricular and subcortical white matter hypodensities suggestive of chronic microangiopathy. There is an old lacunar infarct in the ankit. VENTRICLES: No hydrocephalus. ORBITS: The orbits are unremarkable. SINUSES AND MASTOIDS: The paranasal sinuses and mastoid air cells are clear. BONES: No fracture. SOFT TISSUES: Unremarkable. IMPRESSION: No acute intracranial abnormality. Mild chronic ischemic changes secondary to small vessel disease. /[place]
--- NOTE | 2025-04-29 23:00 | ERN ---
General Chief Complaint: Mechanical Fall Stated Complaint: FALL Time Seen by MD: 19:48 Time Seen by Midlevel: 19:48 Source: patient History of Present Illness Initial Comments Patient is a 69-year-old female being brought in by EMS for evaluation of a mechanical ground level fall. Patient states she lost her balance and hit her head. Patient does admit to being homeless. C denies any other symptoms Allergies: Coded Allergies: Penicillins (Unverified Allergy, Severe, SWELLING, 08/21/19) aspirin (Unverified Allergy, Unknown, SWELLING, 08/21/19) warfarin (Unverified Allergy, Unknown, 02/06/22) wool (Unverified Allergy, Unknown, RASH, 08/21/19) Home Meds Active Scripts Albuterol Sulfate (Ventolin Hfa) 90 Mcg Hfa.aer.ad, 2 PUFF IH Q4HPRN PRN for wheezing for 30 Days, #18 GM 0 Refills Prov:SANDRA HAAS MD 04/26/25 Potassium Chloride (K-Dur/Klor-Con) 10 Meq Ertab, 1 TAB PO DAILY for 10 Days, #10 TAB 0 Refills Prov:SANDRA HAAS MD 04/26/25 Sulfamethoxazole/Trimethoprim (Bactrim Ds Tablet) 1 Each Tablet, 1 TAB PO BID for 7 Days, #14 TAB 0 Refills Prov:NIRAJ WEINER 10/05/22 Albuterol Sulfate (Proair Hfa) 8.5 Gm Hfa.aer.ad, 2 PUFF IH QIDP, #1 INHALER Prov:EJ LAGUNA 02/06/22 D-Methorphan/PE/Acetaminophen (Theraflu Ms Severe Cold Pckt) 1 Each Powd.pack, 1 EACH PO QIDP, #20 PACK Prov:EJ LAGUNA 02/06/22 Cyclobenzaprine HCl (Flexeril) 10 Mg Tab, 10 MG PO BID, #30 TAB Prov:EJ LAGUNA 02/06/22 Naproxen (Naprosyn) 500 Mg Tablet, 500 MG PO BIDPC, #60 TAB Prov:EJ LAGUNA 02/06/22 Loratadine (Loratadine) 10 Mg Tablet, 10 MG PO DAILY for 30 Days, #30 TAB Prov:SANDRA HAAS MD 11/07/21 Fluticasone Propionate (Flonase Nasal [place]) 50 Mcg/[place], 50 MCG NASAL BID for 7 Days, #14 SPRAY Prov:SANDRA HAAS MD 11/07/21 Reported Medications Mirtazapine (Mirtazapine) 15 Mg Tab.rapdis, 15 MG PO HS, TAB 08/21/19 Hydrocodone/Acetaminophen ([place] 10-325 Tablet) 1 Each Tablet, 1 EACH PO TID, TAB 08/21/19 Clopidogrel Bisulfate (Plavix) 75 Mg Tablet, 75 MG PO DAILY, TAB 08/21/19 Pregabalin (Lyrica) 150 Mg Capsule, 150 MG PO BID, CAP 08/21/19 Alprazolam (Xanax) 1 Mg Tablet, 1 MG PO TID, TAB 08/21/19 Budesonide/Formoterol Fumarate (Symbicort 160-4.5 Mcg Inhaler) 10.2 Gm Hfa.aer.ad, 10.2 GM IH BID 08/21/19 Metformin HCl (Metformin HCl) 500 Mg Tablet, 500 MG PO DAILYBKFST, TAB 08/21/19 Ropinirole HCl (Ropinirole HCl) 2 Mg Tablet, 2 MG PO TID, TAB 08/21/19 Tiotropium [place] (Spiriva Respimat) 4 Gm Mist.inhal, 4 GM IH DAILY 08/21/19 Past Medical History Past Medical History: A-Fib, Anxiety, Bipolar, Bronchitis, COPD, Depression, Diabetes-Type II Medical History Other: Restless leg syndrome, BACK PAIN Past Surgical History: Hysterectomy Surgical History Other: RIGHT SHOULDER, KIDNEY SX Family History Family History: Negative Social History Social History: Negative Female( History) History: Not Applicable ROS Dictation CONSTITUTIONAL: Negative except for HPI HEAD/FACE: Negative except for HPI EENT: Negative except for HPI RESPIRATORY: Negative except for HPI GASTROINTESTINAL/ABDOMINAL: Negative except for HPI GENITOURINARY: Negative except for HPI MUSCULOSKELETAL: Negative except for HPI INTEGUMENTARY: Negative except for HPI NEUROLOGICAL/PSYCH: Negative except for HPI HEMATOLOGIC/LYMPHATIC: Negative except for HPI All Systems Negative, Except as noted above. 13 point review of systems assessed and all negative except for above. Physical Exam Physical Exam Dictation Vital Signs reviewed General Appearance: Alert, oriented x 3, no acute distress, well developed, nourished. Head and Face: non-traumatic. Eyes: PERRL, pink conjunctivas, eyelid no trauma, anterior chamber with arcus senilis. Ears: Pinnas intact and no signs of trauma or erythema ear canals clear and no discharge TM no erythema Nose: No discharge, no bleeding. Oropharynx: Mouth normal, tongue pink, pharynx clear,no erythema, tonsils no exudates, no abscesses noted, mucous membrane moist Neck: Supple, non-tender, no thyromegaly, no masses, no JVD, no bruits Breast:Deferred Chest:No tenderness, no crepitus, no paradoxical movement, no retractions Lungs:Clear, well-ventilated, symmetric, no rales, no wheezing, no rhonchi, no stridor, good breath sounds bilaterally Heart: Regular rate, regular rhythm, no murmur, no gallops Vascular: no peripheral edema, Abdomen: Soft, positive bowel sounds, nondistended, no guarding, nontender, no rebound, no masses no hepatomegaly, no splenomegaly, no Ruano's sign, no hernias. Rectal: Deferred Genital: Deferred Neurological: Normal speech, motor function intact, sensory function intact Musculoskeletal: Neck nontender, full range of motion, back nontender, full range of motion, Extremities: nontender, full range of motion Skin: Color pink, dry, no turgor, no rash, no lacerations, no abrasions, no contusions. Lymphatic: Deferred Results Laboratory and Microbiology Lab and Micro Result Laboratory Tests Test 04/29/25 20:12 White Blood Count 7.0 K/uL (4.8-10.8) Red Blood Count 3.64 MIL/uL (4.00-5.50) L Hemoglobin 10.1 g/dL (12.0-16.0) L Hematocrit 32.0 % (36-48) L Mean Corpuscular Volume 87.9 fL (79-99) Mean Corpuscular Hemoglobin 27.7 pg (27.0-33.0) Mean Corpuscular Hemoglobin Concent 31.6 g/dL (32.0-36.0) L Red Cell Distribution Width 15.3 % (11.0-15.5) Platelet Count 398 K/uL (130-400) Mean Platelet Volume 8.6 fL (7.5-10.5) Immature Granulocyte % (Auto) 0.7 % (0-1) Neutrophils (%) (Auto) 68.5 % (40.0-77.0) Lymphocytes (%) (Auto) 19.1 % (21.0-51.0) L Monocytes (%) (Auto) 9.0 % (3.0-13.0) Eosinophils (%) (Auto) 2.3 % (0.0-8.0) Basophils (%) (Auto) 0.4 % (0.0-5.0) Neutrophils # (Auto) 4.8 K/uL (1.8-7.7) Lymphocytes # (Auto) 1.3 K/uL (1.0-4.8) Monocytes # (Auto) 0.6 K/uL (0.1-1.0) Eosinophils # (Auto) 0.16 K/uL (0.00-0.70) Basophils # (Auto) 0.03 K/uL (0.00-0.20) Absolute Immature Granulocyte (auto 0.05 K/uL (0-1) Nucleated Red Blood Cells 0.0 % (0.0-0.19) Sodium Level 137 mmol/L (136-145) Potassium Level 3.8 mmol/L (3.5-5.1) Chloride Level 104 mmol/L (101-111) Carbon Dioxide Level 27 mmol/L (21-32) Blood Urea Nitrogen 21 mg/dL (7-18) H Creatinine 0.7 mg/dL (0.5-1.0) Glomerular Filtration Rate Calc 92 mL/min (>90) Random Glucose 108 mg/dL (70-105) H Total Calcium 8.5 mg/dL (8.5-10.1) Troponin I High Sensitivity 18 ng/L (4-50) Labs Reviewed?: Yes MDM MDM: Differential diagnosis: Fall, closed head injury, dehydration There are no social concerns with this patient. Prescription drug management Prescriptions will include: None Medical management and examination interpretation discussions were had by me with other qualified healthcare professionals as indicated for the patient's care. ED Course Orders Procedure Category Date Status Time 12 Lead Ekg Tracing- EKG 04/29/25 Logged Technical 19:57 Cbc With Differential LAB 04/29/25 Complete 19:57 Basic Metabolic Panel LAB 04/29/25 Complete 19:57 Troponin I High LAB 04/29/25 Complete Sensitivity 19:57 Ct Head/Brain W/O CT 04/29/25 Resulted Contrast 19:57 Vital Signs Date Time Temp Pulse Resp B/P (MAP) Pulse Ox O2 Delivery O2 Flow Rate FiO2 04/29/25 20:23 98.1 51 19 136/75 99 Room Air* 0 21 04/29/25 19:38 98.1 68 16 110/86 99 0 DX & DISP Disposition: Discharge Departure Impression: Primary Impression: Fall Additional Impressions: Closed head injury, Scalp contusion Condition: Stable Referrals: SELF,REFERRAL (PCP) Time of Disposition: 22:55 I have reviewed the case, and I agree with, Diagnosis and Plan I performed the substantive portion of the visit. I have reviewed and personally made and approve the management plan that is documented in the note by myself or the ERIC. I acknowledge for responsibility for the patient's management plan. HERI ZENDEJAS PAC Apr 29, 2025 22:59
--- NOTE | 2025-04-30 01:04 | NUR ---
NO RIDE UNTIL AM
[2025-04-30 02:10] VITALS: BP 122/68; PULSE 60; RESP 18; TEMP 98; O2SAT 97
--- NOTE | 2025-04-30 05:48 | EKG ---
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
== END 2025-04-30 02:12 | disposition home or self-care (01) ==
LOC: EDH 19:32
DX: S00.03XA Contusion of scalp, initial encounter (principal); E11.9 Type 2 diabetes mellitus without complications; F31.9 Bipolar disorder, unspecified; F41.9 Anxiety disorder, unspecified; G25.81 Restless legs syndrome; J44.9 Chronic obstructive pulmonary disease, unspecified; Z59.00 Homelessness unspecified; Z79.02 Long term (current) use of antithrombotics/antiplatelets; Z79.51 Long term (current) use of inhaled steroids; Z79.891 Long term (current) use of opiate analgesic; Z79.899 Other long term (current) drug therapy; Z88.0 Allergy status to penicillin; Z88.6 Allergy status to analgesic agent; Z90.710 Acquired absence of both cervix and uterus; Z95.0 Presence of cardiac pacemaker; W18.39XA Other fall on same level, initial encounter; Y93.89 Activity, other specified; Y92.89 Other specified places as the place of occurrence of the external cause; Y99.8 Other external cause status
CPT/HCPCS: 36415; 70450; 80048; 84484; 85025; 93005; 99284

== ENCOUNTER 2025-04-30 03:02 | Emergency (ER) | payer MEDICARE, MEDICAID ==
[~2025-04-30] VITALS: Ht 162.6 cm; Wt 55.3 kg
--- NOTE | 2025-04-30 03:31 | ERN ---
General Chief Complaint: Other Problems Stated Complaint: C/O "DON'T FEEL WELL" Time Seen by MD: 03:09 History of Present Illness Initial Comments 69-year-old female who has been coming in and out of the emergency room 2-3 times today presents to emergency room for not feeling well". She was just discharged earlier today but left 5 minutes prior to re registering into this emergency. She is asking for medications for her headache but is refusing any blood work at this time Allergies: Coded Allergies: Penicillins (Unverified Allergy, Severe, SWELLING, 08/21/19) aspirin (Unverified Allergy, Unknown, SWELLING, 08/21/19) warfarin (Unverified Allergy, Unknown, 02/06/22) wool (Unverified Allergy, Unknown, RASH, 08/21/19) Home Meds Active Scripts Albuterol Sulfate (Ventolin Hfa) 90 Mcg Hfa.aer.ad, 2 PUFF IH Q4HPRN PRN for wheezing for 30 Days, #18 GM 0 Refills Prov:SANDRA HAAS MD 04/26/25 Potassium Chloride (K-Dur/Klor-Con) 10 Meq Ertab, 1 TAB PO DAILY for 10 Days, #10 TAB 0 Refills Prov:SANDRA HAAS MD 04/26/25 Sulfamethoxazole/Trimethoprim (Bactrim Ds Tablet) 1 Each Tablet, 1 TAB PO BID for 7 Days, #14 TAB 0 Refills Prov:NIRAJ WEINER 10/05/22 Albuterol Sulfate (Proair Hfa) 8.5 Gm Hfa.aer.ad, 2 PUFF IH QIDP, #1 INHALER Prov:EJ LAGUNA 02/06/22 D-Methorphan/PE/Acetaminophen (Theraflu Ms Severe Cold Pckt) 1 Each Powd.pack, 1 EACH PO QIDP, #20 PACK Prov:EJ LAGUNA 02/06/22 Cyclobenzaprine HCl (Flexeril) 10 Mg Tab, 10 MG PO BID, #30 TAB Prov:EJ LAGUNA 02/06/22 Naproxen (Naprosyn) 500 Mg Tablet, 500 MG PO BIDPC, #60 TAB Prov:EJ LAGUNA 02/06/22 Loratadine (Loratadine) 10 Mg Tablet, 10 MG PO DAILY for 30 Days, #30 TAB Prov:SANDRA HAAS MD 11/07/21 Fluticasone Propionate (Flonase Nasal [place]) 50 Mcg/[place], 50 MCG NASAL BID for 7 Days, #14 SPRAY Prov:SANDRA HAAS MD 11/07/21 Reported Medications Mirtazapine (Mirtazapine) 15 Mg Tab.rapdis, 15 MG PO HS, TAB 08/21/19 Hydrocodone/Acetaminophen ([place] 10-325 Tablet) 1 Each Tablet, 1 EACH PO TID, TAB 08/21/19 Clopidogrel Bisulfate (Plavix) 75 Mg Tablet, 75 MG PO DAILY, TAB 08/21/19 Pregabalin (Lyrica) 150 Mg Capsule, 150 MG PO BID, CAP 08/21/19 Alprazolam (Xanax) 1 Mg Tablet, 1 MG PO TID, TAB 08/21/19 Budesonide/Formoterol Fumarate (Symbicort 160-4.5 Mcg Inhaler) 10.2 Gm Hfa.aer.ad, 10.2 GM IH BID 08/21/19 Metformin HCl (Metformin HCl) 500 Mg Tablet, 500 MG PO DAILYBKFST, TAB 08/21/19 Ropinirole HCl (Ropinirole HCl) 2 Mg Tablet, 2 MG PO TID, TAB 08/21/19 Tiotropium [place] (Spiriva Respimat) 4 Gm Mist.inhal, 4 GM IH DAILY 08/21/19 Past Medical History Past Medical History: Anxiety, COPD, Diabetes-Type II Medical History Other: Restless leg syndrome, BACK PAIN Past Surgical History: Unknown Surgical History Other: RIGHT SHOULDER, KIDNEY SX Family History Family History: Negative Social History Social History: Negative Female( History) History: Not Applicable Constitutional: (+) malaise Physical Exam General Appearance: (+) no apparent distress, (+) other documentation (Unkempt appearing) Orientation: (+) alert, (+) oriented x 3 Eye: bilateral eye normal inspection, bilateral eye PERRL, bilateral eye EOMI Ear, Nose, Throat: (+) hearing grossly normal, (+) normal ENT inspection, (+) moist mucous membraine Neck: (+) normal inspection Respiratory: (+) chest non-tender, (+) lungs clear, (+) well ventilated Heart: (+) regular; (-) murmur Gastrointestinal: (+) soft, (+) non-tender Neurologic/Psychiatric: (+) normal speech, (+) no motor defecits MDM 69-year-old female who has been here two to 3 times a day and recently discharged who left the emergency room and re-registered 10 minutes afterwards here for headache. She has refusing any blood work at this time. States she would like some medications for headache. We will provide her with Tylenol and Toradol. Her creatinine from earlier today has been within normal limits. Likely discharge home She is sleeping comfortably at this time. Has been walking around the emergency room asking for sandwiches. States the headache improved after the Tylenol. No Toradol was given. We will discharge the patient home at this time. She is currently eating a sandwich and is under blankets and we would like to stay warm prior to discharge. ED Course Orders Procedure Category Date Status Time Ketorolac PHA 04/30/25 Complete Tromethamine 15mg/Ml 03:30 Acetaminophen 500mg PHA 04/30/25 Complete Tab (Tylenol 500mg T 03:30 Current Medications Medications (Trade) Dose Ordered Sig/Franco Route PRN Reason Start Time Stop Time Status Last Admin Dose Admin Acetaminophen (TYLenol 500MG TAB) 500 mg ONCE ONCE PO 04/30/25 03:30 04/30/25 03:58 DC 04/30/25 04:05 Ketorolac Tromethamine (toRADol) 15 mg ONCE ONCE IM 04/30/25 03:30 04/30/25 04:22 DC Vital Signs Date Time Temp Pulse Resp B/P (MAP) Pulse Ox O2 Delivery O2 Flow Rate FiO2 04/30/25 03:03 96.6 64 20 111/64 97 Room Air DX & DISP Disposition: Discharge Departure Impression: Primary Impression: Homelessness Additional Impression: Tension headache Condition: Stable Referrals: SELF,REFERRAL (PCP) CULLEN FARRELL MD Apr 30, 2025 03:31
[2025-04-30 06:39] VITALS: BP 110/62; PULSE 60; RESP 16; TEMP 97.2; O2SAT 97
--- NOTE | 2025-04-30 07:11 | NUR ---
report given to Manny GEIGER
== END 2025-04-30 07:56 | disposition home or self-care (01) ==
LOC: EDH 03:02
DX: G44.209 Tension-type headache, unspecified, not intractable (principal); E11.9 Type 2 diabetes mellitus without complications; F41.9 Anxiety disorder, unspecified; G25.81 Restless legs syndrome; J44.9 Chronic obstructive pulmonary disease, unspecified; Z59.00 Homelessness unspecified; Z79.02 Long term (current) use of antithrombotics/antiplatelets; Z79.51 Long term (current) use of inhaled steroids; Z79.891 Long term (current) use of opiate analgesic; Z79.899 Other long term (current) drug therapy; Z88.0 Allergy status to penicillin; Z88.6 Allergy status to analgesic agent
CPT/HCPCS: 99282

== ENCOUNTER 2025-05-05 11:51 | Emergency (ER) | payer MEDICARE, MEDICAID ==
[~2025-05-05] VITALS: Ht 162.6 cm; Wt 59.0 kg
[2025-05-05 12:48] LABS: IMMATURE GRANULOCYTE ABSOLUTE 0.04 K/uL (0-1); NUCLEATED RED BLOOD CELLS 0.0 % (0.0-0.19); PLATELET COUNT (AUTO) 386 K/uL (130-400); RED BLOOD CELL COUNT(AUTO) 4.05 MIL/uL (4.00-5.50); RED CELL DISTRIBUTION WIDTH 15.6 % (11.0-15.5); WHITE BLOOD COUNT (AUTO) 6.3 K/uL (4.8-10.8)
[2025-05-05 13:01] LABS: CREATININE 0.6 mg/dL (0.5-1.0); GLOMERULAR FILTR. RATE CALC 96 mL/min (>90); GLUCOSE,RANDOM 101 mg/dL (70-105); SODIUM SERUM 139 mmol/L (136-145); UREA NITROGEN, BLOOD 9 mg/dL (7-18)
[2025-05-05 13:05] LABS: ALCOHOL, BLOOD 4 mg/dL (0-10)
--- NOTE | 2025-05-05 13:21 | HMCIMG ---
EXAM: CR Chest, 2 View. CLINICAL HISTORY: weakness COMPARISON: Radiograph dated April 26, 2025 FINDINGS: Suspected chronic obstructive pulmonary disease. Redemonstrated the cystic lung lesion within the right upper lung. This would be better characterized with CT imaging. Elsewhere, no focal airspace disease, pleural effusion, or pneumothorax. Heart size and pulmonary vessels are within normal limits. IMPRESSION: 1. Cystic lung lesion in right upper lung, unchanged. 2. CT recommended for further characterization of the lung lesion if warranted clinically. /[place]
--- NOTE | 2025-05-05 13:45 | NUR ---
SPOKE TO [facility] IN REGARDS TO PT, WORKER WILL NOTIFY ENROLLMENT ADVISOR SCREENER TO COME TO ED FOR PSYCH SCREENING.
[2025-05-05 14:32] LABS: APPEARANCE,URINE CLOUDY (CLEAR); GLUCOSE, URINE (UA) NEGATIVE (NEGATIVE); LEUKOCYTE ESTERASE ,URINE 500 Leu/uL (NEGATIVE); NITRATE,URINE 2+ (NEGATIVE); OCCULT BLOOD,URINE +- (TRACE) (NEGATIVE)
[2025-05-05 14:35] LABS: ADD UA MICROSCOPIC YES
[2025-05-05 14:39] LABS: AMPHET/METH SCREEN,URINE NEGATIVE (NEGATIVE); BARBITURATE SCREEN, URINE NEGATIVE (NEGATIVE); CANNABINOID SCREEN,URINE POSITIVE (NEGATIVE); COCAINE SCREEN,URINE POSITIVE (NEGATIVE)
[2025-05-05 14:41] LABS: SQUAMOUS EPITHELIAL CELL,UR FEW /HPF (0-2); UNCLASSIFIED CRYSTAL 2 /HPF (None Seen); WBC CLUMP FEW /HPF (0-1)
--- NOTE | 2025-05-05 15:06 | NUR ---
DANIELLE ROBLEDO FROM [facility] PATIENT IS CLEARED FROM HER STANDPOINT, PATIENT RESTING IN BED, CALL LIGHT IN REACH
--- NOTE | 2025-05-05 15:10 | ERN ---
ED Note History of Present Illness Stated Complaint: WEAKNESS Chief Complaint: Weakness Time Seen by MD: 11:53 Time Seen by Midlevel: 12:00 Dictation: 69-year-old female with a history of diabetes coming in with complaints of generalized weakness and dysuria. Patient states it has been going on for the last couple of days. Denies having any fever, nausea or vomiting. Patient also states at the time of triage that she wants to go to sleep and never wake up, states she is suicidal she wants to go with her mom and dad. Allergies: Coded Allergies: Penicillins (Unverified Allergy, Severe, SWELLING, 08/21/19) aspirin (Unverified Allergy, Unknown, SWELLING, 08/21/19) warfarin (Unverified Allergy, Unknown, 02/06/22) wool (Unverified Allergy, Unknown, RASH, 08/21/19) Home Meds Active Scripts Albuterol Sulfate (Ventolin Hfa) 90 Mcg Hfa.aer.ad, 2 PUFF IH Q4HPRN PRN for wheezing for 30 Days, #18 GM 0 Refills Prov:SANDRA HAAS MD 04/26/25 Potassium Chloride (K-Dur/Klor-Con) 10 Meq Ertab, 1 TAB PO DAILY for 10 Days, #10 TAB 0 Refills Prov:SANDRA HAAS MD 04/26/25 Sulfamethoxazole/Trimethoprim (Bactrim Ds Tablet) 1 Each Tablet, 1 TAB PO BID for 7 Days, #14 TAB 0 Refills Prov:NIRAJ WEINER 10/05/22 Albuterol Sulfate (Proair Hfa) 8.5 Gm Hfa.aer.ad, 2 PUFF IH QIDP, #1 INHALER Prov:EJ LAGUNA 02/06/22 D-Methorphan/PE/Acetaminophen (Theraflu Ms Severe Cold Pckt) 1 Each Powd.pack, 1 EACH PO QIDP, #20 PACK Prov:EJ LAGUNA 02/06/22 Cyclobenzaprine HCl (Flexeril) 10 Mg Tab, 10 MG PO BID, #30 TAB Prov:EJ LAGUNA 02/06/22 Naproxen (Naprosyn) 500 Mg Tablet, 500 MG PO BIDPC, #60 TAB Prov:EJ LAGUNA 02/06/22 Loratadine (Loratadine) 10 Mg Tablet, 10 MG PO DAILY for 30 Days, #30 TAB Prov:SANDRA HAAS MD 11/07/21 Fluticasone Propionate (Flonase Nasal [place]) 50 Mcg/[place], 50 MCG NASAL BID for 7 Days, #14 SPRAY Prov:SANDRA HAAS MD 11/07/21 Reported Medications Mirtazapine (Mirtazapine) 15 Mg Tab.rapdis, 15 MG PO HS, TAB 08/21/19 Hydrocodone/Acetaminophen ([place] 10-325 Tablet) 1 Each Tablet, 1 EACH PO TID, TAB 08/21/19 Clopidogrel Bisulfate (Plavix) 75 Mg Tablet, 75 MG PO DAILY, TAB 08/21/19 Pregabalin (Lyrica) 150 Mg Capsule, 150 MG PO BID, CAP 08/21/19 Alprazolam (Xanax) 1 Mg Tablet, 1 MG PO TID, TAB 08/21/19 Budesonide/Formoterol Fumarate (Symbicort 160-4.5 Mcg Inhaler) 10.2 Gm Hfa.aer.ad, 10.2 GM IH BID 08/21/19 Metformin HCl (Metformin HCl) 500 Mg Tablet, 500 MG PO DAILYBKFST, TAB 08/21/19 Ropinirole HCl (Ropinirole HCl) 2 Mg Tablet, 2 MG PO TID, TAB 08/21/19 Tiotropium [place] (Spiriva Respimat) 4 Gm Mist.inhal, 4 GM IH DAILY 08/21/19 Past Medical History Past Medical History: COPD, Hypertension, Other Additional Past Medical Hx: CHRONIC BRONCHITIS Surgical History: Unknown Surgical History Other: RIGHT SHOULDER, KIDNEY SX Family History: Negative Social History: Negative History: Not Applicable Review of System Dictation Constitutional: Negative for fever,chills, and weight loss Eyes: Negative for injury, pain,redness, and discharge ENT: Negative for injury,pain or swelling Cardiovascular: Negative for chest pain, palpitations, and edema Respiratory: Negative for shortness of breath, cough, and wheezing, Abdomen/GI: Negative for abdominal pain, nausea, vomiting, diarrhea, and constipation Back: Negative for injury and pain : Negative for injury, bleeding and discharge MS/Extremity: Negative for injury and deformity Skin: Negative for rash, and discoloration Neuro: Negative for headache, weakness, numbness, tingling, and seizure Psych: Positive for suicidal ideation Review of Systems: was completed Initial Vital Sign VS Vital Signs Date Time Temp Pulse Resp B/P (MAP) Pulse Ox O2 Delivery O2 Flow Rate FiO2 05/05/25 11:53 98.1 76 16 100/67 95 Room Air 0 05/05/25 12:19 21 Physical Exam Dictation General: awake, alert, NAD Head/Face: Normocephalic, atraumatic Eyes: PERRL, EOMI, vision at baseline ENT: oral cavity clear, TMs clear, no signs of infection Neck: Trachea midline, supple, no nuchal rigidity Cardiovascular: RRR, normal S1/S2, No MRGs, no JVD Respiratory: CTAB, no respiratory distress, No rales or wheezes Abdomen: Soft, non-tender, non-distended, normal bowel sounds, no guarding or rebound. Skin: Warm, dry, normal turgor, no rash MS/Extremity: Pulses equal, no cyanosis, neurovascular intact, FROM Neuro: COAx4, GCS 15, strength 5/5, CN 2-12 intact, normal cerebellar exam, normal gait, Psych: Normal behavior, mood, and affect normal Results (Laboratory/Radiology) Laboratory/Radiology Laboratory Tests Test 05/05/25 12:42 05/05/25 14:23 White Blood Count 6.3 K/uL (4.8-10.8) Red Blood Count 4.05 MIL/uL (4.00-5.50) Hemoglobin 11.2 g/dL (12.0-16.0) L Hematocrit 35.7 % (36-48) L Mean Corpuscular Volume 88.1 fL (79-99) Mean Corpuscular Hemoglobin 27.7 pg (27.0-33.0) Mean Corpuscular Hemoglobin Concent 31.4 g/dL (32.0-36.0) L Red Cell Distribution Width 15.6 % (11.0-15.5) H Platelet Count 386 K/uL (130-400) Mean Platelet Volume 8.7 fL (7.5-10.5) Immature Granulocyte % (Auto) 0.6 % (0-1) Neutrophils (%) (Auto) 69.8 % (40.0-77.0) Lymphocytes (%) (Auto) 17.7 % (21.0-51.0) L Monocytes (%) (Auto) 8.9 % (3.0-13.0) Eosinophils (%) (Auto) 2.2 % (0.0-8.0) Basophils (%) (Auto) 0.8 % (0.0-5.0) Neutrophils # (Auto) 4.4 K/uL (1.8-7.7) Lymphocytes # (Auto) 1.1 K/uL (1.0-4.8) Monocytes # (Auto) 0.6 K/uL (0.1-1.0) Eosinophils # (Auto) 0.14 K/uL (0.00-0.70) Basophils # (Auto) 0.05 K/uL (0.00-0.20) Absolute Immature Granulocyte (auto 0.04 K/uL (0-1) Nucleated Red Blood Cells 0.0 % (0.0-0.19) Sodium Level 139 mmol/L (136-145) Potassium Level 3.3 mmol/L (3.5-5.1) L Chloride Level 105 mmol/L (101-111) Carbon Dioxide Level 28 mmol/L (21-32) Blood Urea Nitrogen 9 mg/dL (7-18) Creatinine 0.6 mg/dL (0.5-1.0) Glomerular Filtration Rate Calc 96 mL/min (>90) Random Glucose 101 mg/dL (70-105) Total Calcium 8.5 mg/dL (8.5-10.1) Salicylates Level 3.8 mg/dL (2.8-20.0) Acetaminophen Level < 1 mcg/mL (10-30) L Serum Alcohol 4 mg/dL (0-10) Urine Color LIGHT-YELLOW (YELLOW) Urine Appearance CLOUDY (CLEAR) H Urine pH 6.5 (5.0-8.0) Urine Specific [place] 1.005 (1.001-1.031) Urine Protein NEGATIVE mg/dL (NEGATIVE) Urine Glucose (UA) NEGATIVE mg/dL (NEGATIVE) Urine Ketones NEGATIVE mg/dL (NEGATIVE) Urine Occult Blood +- (TRACE) (NEGATIVE) H Urine Nitrate 2+ (NEGATIVE) H Urine Bilirubin NEGATIVE mg/dL (NEGATIVE) Urine Urobilinogen 0.2 mg/dL (0.2-1.0) Urine Leukocyte Esterase 500 Elvis/uL (NEGATIVE) H Urine RBC 2-5 /HPF (0-1) H Urine WBC >100 /HPF (0-1) H Urine WBC Clumps (Auto) FEW /HPF (0-1) Urine Squamous Epithelial Cells FEW /HPF (0-2) Urine Other Crystals (Auto) 2 /HPF (None Seen) Urine Bacteria FEW /HPF (None Seen) Urine Opiates Screen NEGATIVE (NEGATIVE) Urine Barbiturates Screen NEGATIVE (NEGATIVE) Urine Phencyclidine Screen NEGATIVE (NEGATIVE) Urine Amphetamines Screen NEGATIVE (NEGATIVE) Urine Benzodiazepines Screen NEGATIVE (NEGATIVE) Urine Cocaine Screen POSITIVE (NEGATIVE) H Urine Marijuana (THC) Screen POSITIVE (NEGATIVE) H Labs Reviewed?: Yes ED Course ED Course Orders Procedure Category Date Status Time Cbc With Differential LAB 05/05/25 Complete 12:16 Basic Metabolic Panel LAB 05/05/25 Complete 12:16 Alcohol, Blood LAB 05/05/25 Complete 12:16 Acetaminophen LAB 05/05/25 Complete 12:16 Salicylate LAB 05/05/25 Complete 12:16 Urinalysis Profile LAB 05/05/25 Complete 12:16 Chest 1vw RAD 05/05/25 Resulted 12:16 Drug Screen Urine LAB 05/05/25 Complete 12:16 One To One Sitter CPOE 05/05/25 Transmitted 13:17 Culture Urine FELICITY 05/05/25 In Process 14:35 Vital Signs Date Time Temp Pulse Resp B/P (MAP) Pulse Ox O2 Delivery O2 Flow Rate FiO2 05/05/25 12:19 97.9 58 20 110/68 96 Room Air* 0 21 05/05/25 11:53 98.1 76 16 100/67 95 Room Air 0 Medical Decision Making MDM MDM: CBC shows a leukocytosis, normocytic anemia hemoglobin of 11 and hematocrit of35. No thrombocytopenia. Chemistry positive for hypokalemia at 3.3. Replacement will be given in the ER. Normal kidney function. UA shows evidence of urinary tract infection. Patient will be discharged with the antibiotics. Toxicology is positive for cocaine and THC. Patient was screened by behavioral Robert Christian, stated did not meet criteria and they will follow up with her tomorrow. Differential diagnosis: Nursing, generalized body weakness, urinary tract infection Rationale: Tests considered and ordered secondary to shared decision making include: Previous outside records reviewed: Old ER visits. Risk of complication and/or morbidity or mortality of patient management: None Medications-Per medication reconciliation Need for hospitalization: Patient does not meet criteria for hospitalization. Need for emergency major/minor surgery: No There are no social concerns with this patient. Prescription drug management Prescriptions will include symptomatic care Patient's prior external medical records from other ER visits were reviewed by me as indicated. Prior testing and results from previous visits were reviewed. Prior tests were taken into account with medical decision making and resource utilization, independent historian/historians were used to obtain complete medical history. I independently interpreted the test that were performed, results were reviewed by me and considered findings on radiology if ordered. Medical management and examination interpretation discussions were had by me with other qualified healthcare professionals as indicated for the patient's care. DX & DISP Disposition: Discharge Departure Impression: Primary Impression: UTI (urinary tract infection) Condition: Stable Scripts Sulfamethoxazole/Trimethoprim (Bactrim Ds Tablet) 800 Mg-160 Mg Tablet 1 TAB PO BID for 7 Days, #14 TAB 0 Refills Prov: DARLYN CORONADO CNP 05/05/25 Additional Instructions: Antibiotics as prescribed. Follow up with PCP. Referrals: SHARON RIBEIRO (PCP) Time of Disposition: 15:29 I have reviewed the case, and I agree with, Diagnosis and Plan DARLYN CORONADO CHAINER May 05, 2025 15:10
[2025-05-05] MEDS ORDERED: SULF1TAB42 PO (15:31)
[2025-05-05 15:49] VITALS: BP 150/67; PULSE 62; RESP 20; TEMP 88; O2SAT 95
--- NOTE | 2025-05-05 15:49 | NUR ---
DC PATIENT WAS DC'D BY DARLYN CORONADO PRINTED [employer]ARD PANELS DEBURRER, I EXPLAINED TO PATIENT TO FOLLOW UP WITH PCP AND PROVIDED INFO BASED ON DIAGNOSIS AND PRESCRIPTIONS WHICH SHE THEN REFUSED, I EXPLAINED TO HER TO FOLLOW UP WITH COREY WILDE WELL WHICH SHE ALSO THEN REFUSED, I WHEELCHAIRED PATIENT OUT OF ED INTO MAIN LOBBY, NO COMPLICATIONS
== END 2025-05-05 15:43 | disposition home or self-care (01) ==
LOC: EDH 11:51
DX: N39.0 Urinary tract infection, site not specified (principal); J44.9 Chronic obstructive pulmonary disease, unspecified; I10 Essential (primary) hypertension; E11.9 Type 2 diabetes mellitus without complications; Z88.0 Allergy status to penicillin; Z88.6 Allergy status to analgesic agent; Z88.8 Allergy status to other drugs, medicaments and biological substances; Z79.891 Long term (current) use of opiate analgesic; Z79.51 Long term (current) use of inhaled steroids; Z79.899 Other long term (current) drug therapy; Z79.02 Long term (current) use of antithrombotics/antiplatelets
CPT/HCPCS: 99284; 71045; 81001; 80048; 80305; 85025; 87086 ×2; 87186; 36415; G0481

== ENCOUNTER 2025-05-15 10:53 | Emergency (ER) | payer MEDICARE, MEDICAID ==
[~2025-05-15] VITALS: Ht 162.6 cm; Wt 59.0 kg
--- NOTE | 2025-05-15 11:07 | ERN ---
ED Note History of Present Illness Stated Complaint: COUGH Chief Complaint: Cough Time Seen by MD: 10:57 Dictation: PATIENT IS A 69-YEAR-OLD FEMALE COMING IN TO THE EMERGENCY ROOM VIA EMS FROM A LOCAL [facility]. SHE WAS FOUND OUTSIDE AND WAS COMPLAI CHRISTIE OF A COUGH AND GENERALIZED BODY WEAKNESS. IN ROUTE SHE HAS GOT NO FEVER NO CHILLS NO NAUSEA VOMITING. SHE HAS NO PRIMARY CARE DOCTOR IN HIS WELL KNOWN TO THE EMERGENCY ROOM STAFF. Allergies: Coded Allergies: Penicillins (Unverified Allergy, Severe, SWELLING, 08/21/19) aspirin (Unverified Allergy, Unknown, SWELLING, 08/21/19) warfarin (Unverified Allergy, Unknown, 02/06/22) wool (Unverified Allergy, Unknown, RASH, 08/21/19) Home Meds Active Scripts Sulfamethoxazole/Trimethoprim (Bactrim Ds Tablet) 800 Mg-160 Mg Tablet, 1 TAB PO BID for 7 Days, #14 TAB 0 Refills Prov:DARLYN CORONADO BAG MACHINE TENDER 05/05/25 Albuterol Sulfate (Ventolin Hfa) 90 Mcg Hfa.aer.ad, 2 PUFF IH Q4HPRN PRN for wheezing for 30 Days, #18 GM 0 Refills Prov:SANDRA HAAS MD 04/26/25 Potassium Chloride (K-Dur/Klor-Con) 10 Meq Ertab, 1 TAB PO DAILY for 10 Days, #10 TAB 0 Refills Prov:SANDRA HAAS MD 04/26/25 Sulfamethoxazole/Trimethoprim (Bactrim Ds Tablet) 1 Each Tablet, 1 TAB PO BID for 7 Days, #14 TAB 0 Refills Prov:NIRAJ WEINER 10/05/22 Albuterol Sulfate (Proair Hfa) 8.5 Gm Hfa.aer.ad, 2 PUFF IH QIDP, #1 INHALER Prov:EJ LAGUNA 02/06/22 D-Methorphan/PE/Acetaminophen (Theraflu Ms Severe Cold Pckt) 1 Each Powd.pack, 1 EACH PO QIDP, #20 PACK Prov:EJ LAGUNA 02/06/22 Cyclobenzaprine HCl (Flexeril) 10 Mg Tab, 10 MG PO BID, #30 TAB Prov:EJ LAGUNA 02/06/22 Naproxen (Naprosyn) 500 Mg Tablet, 500 MG PO BIDPC, #60 TAB Prov:EJ LAGUNA 02/06/22 Loratadine (Loratadine) 10 Mg Tablet, 10 MG PO DAILY for 30 Days, #30 TAB Prov:SANDRA HAAS MD 11/07/21 Fluticasone Propionate (Flonase Nasal [place]) 50 Mcg/[place], 50 MCG NASAL BID for 7 Days, #14 SPRAY Prov:SANDRA HAAS MD 11/07/21 Reported Medications Mirtazapine (Mirtazapine) 15 Mg Tab.rapdis, 15 MG PO HS, TAB 08/21/19 Hydrocodone/Acetaminophen ([place] 10-325 Tablet) 1 Each Tablet, 1 EACH PO TID, TAB 08/21/19 Clopidogrel Bisulfate (Plavix) 75 Mg Tablet, 75 MG PO DAILY, TAB 08/21/19 Pregabalin (Lyrica) 150 Mg Capsule, 150 MG PO BID, CAP 08/21/19 Alprazolam (Xanax) 1 Mg Tablet, 1 MG PO TID, TAB 08/21/19 Budesonide/Formoterol Fumarate (Symbicort 160-4.5 Mcg Inhaler) 10.2 Gm Hfa.aer.ad, 10.2 GM IH BID 08/21/19 Metformin HCl (Metformin HCl) 500 Mg Tablet, 500 MG PO DAILYBKFST, TAB 08/21/19 Ropinirole HCl (Ropinirole HCl) 2 Mg Tablet, 2 MG PO TID, TAB 08/21/19 Tiotropium [place] (Spiriva Respimat) 4 Gm Mist.inhal, 4 GM IH DAILY 08/21/19 Past Medical History Past Medical History: COPD, Hypertension, Other Additional Past Medical Hx: CHRONIC BRONCHITIS Surgical History: Unknown Surgical History Other: RIGHT SHOULDER, KIDNEY SX Family History: Negative Social History: Negative History: Not Applicable RN Note Reviewed/Agreed w/PFSH: Yes Review of System Dictation CONSTITUTIONAL: NEGATIVE EXCEPT FOR HPI GENERALIZED BODY WEAKNESS HEAD/FACE: NEGATIVE EXCEPT FOR HPI EENT: NEGATIVE EXCEPT FOR HPI RESPIRATORY: NEGATIVE EXCEPT FOR HPI SHORTNESS A BREATH GASTROINTESTINAL/ABDOMINAL: NEGATIVE EXCEPT FOR HPI GENITOURINARY: NEGATIVE EXCEPT FOR HPI MUSCULOSKELETAL: NEGATIVE EXCEPT FOR HPI INTEGUMENTARY: NEGATIVE EXCEPT FOR HPI NEUROLOGICAL/PSYCH: NEGATIVE EXCEPT FOR HPI HEMATOLOGIC/LYMPHATIC: NEGATIVE EXCEPT FOR HPI ALL SYSTEMS NEGATIVE, EXCEPT NOTED ABOVE. 13 POINT REVIEW OF SYSTEMS ASSESSED AND ALL NEGATIVE EXCEPT FOR ABOVE. Initial Vital Sign VS Vital Signs Date Time Temp Pulse Resp B/P (MAP) Pulse Ox O2 Delivery O2 Flow Rate FiO2 05/15/25 10:54 97.9 62 18 127/77 98 Room Air 0 05/15/25 11:13 21 Physical Exam Dictation VITAL SIGNS REVIEWED GENERAL APPEARANCE: ALERT, ORIENTED X 3, NO ACUTE DISTRESS, WELL DEVELOPED, NOURISHED. PATIENT APPEARS UNKEMPT HEAD AND FACE: NON-TRAUMATIC. EYES: PERRL, PINK CONJUNCTIVAS, EYELID NO TRAUMA, ANTERIOR CHAMBER WITH ARCUS SENILIS. EARS: PINNAS INTACT AND NO SIGNS OF TRAUMA OR ERYTHEMA EAR CANALS CLEAR AND NO DISCHARGE TM NO ERYTHEMA NOSE: NO DISCHARGE, NO BLEEDING. OROPHARYNX: MOUTH NORMAL, TONGUE PINK, PHARYNX CLEAR,NO ERYTHEMA, TONSILS NO EXUDATES, NO ABSCESSES NOTED, MUCOUS MEMBRANE MOIST NECK: SUPPLE, NON-TENDER, NO THYROMEGALY, NO MASSES, NO JVD, NO BRUITS BREAST:DEFERRED CHEST:NO TENDERNESS, NO CREPITUS, NO PARADOXICAL MOVEMENT, NO RETRACTIONS LUNGS:CLEAR, WELL-VENTILATED, SYMMETRIC, NO RALES, NO WHEEZING, NO RHONCHI, NO STRIDOR, GOOD BREATH SOUNDS BILATERALLY NO TACHYPNEA NO RETRACTIONS HEART: REGULAR RATE, REGULAR RHYTHM, NO MURMUR, NO GALLOPS VASCULAR: NO PERIPHERAL EDEMA, ABDOMEN: SOFT, POSITIVE BOWEL SOUNDS, NONDISTENDED, NO GUARDING, NONTENDER, NO REBOUND, NO MASSES NO HEPATOMEGALY, NO SPLENOMEGALY, NO MARTÍNEZ'S SIGN, NO HERNIAS. RECTAL: DEFERRED GENITAL: DEFERRED NEUROLOGICAL: NORMAL SPEECH, MOTOR FUNCTION INTACT, SENSORY FUNCTION INTACT MUSCULOSKELETAL: NECK NONTENDER, FULL RANGE OF MOTION, BACK NONTENDER, FULL RANGE OF MOTION, EXTREMITIES: NONTENDER, FULL RANGE OF MOTION SKIN: COLOR PINK, DRY, NO TURGOR, NO RASH, NO LACERATIONS, NO ABRASIONS, NO CONTUSIONS. LYMPHATIC: DEFERRED Results (Laboratory/Radiology) Laboratory/Radiology Laboratory Tests Test 05/15/25 11:14 05/15/25 11:42 SARS-CoV-2 Antigen (Rapid) PRESUMPTIVE NEGATIVE White Blood Count 6.0 K/uL (4.8-10.8) Red Blood Count 4.47 MIL/uL (4.00-5.50) Hemoglobin 12.2 g/dL (12.0-16.0) Hematocrit 38.9 % (36-48) Mean Corpuscular Volume 87.0 fL (79-99) Mean Corpuscular Hemoglobin 27.3 pg (27.0-33.0) Mean Corpuscular Hemoglobin Concent 31.4 g/dL (32.0-36.0) L Red Cell Distribution Width 15.0 % (11.0-15.5) Platelet Count 406 K/uL (130-400) H Mean Platelet Volume 8.9 fL (7.5-10.5) Immature Granulocyte % (Auto) 1.0 % (0-1) Neutrophils (%) (Auto) 58.3 % (40.0-77.0) Lymphocytes (%) (Auto) 28.6 % (21.0-51.0) Monocytes (%) (Auto) 8.8 % (3.0-13.0) Eosinophils (%) (Auto) 2.5 % (0.0-8.0) Basophils (%) (Auto) 0.8 % (0.0-5.0) Neutrophils # (Auto) 3.5 K/uL (1.8-7.7) Lymphocytes # (Auto) 1.7 K/uL (1.0-4.8) Monocytes # (Auto) 0.5 K/uL (0.1-1.0) Eosinophils # (Auto) 0.15 K/uL (0.00-0.70) Basophils # (Auto) 0.05 K/uL (0.00-0.20) Absolute Immature Granulocyte (auto 0.06 K/uL (0-1) Nucleated Red Blood Cells 0.0 % (0.0-0.19) Sodium Level 132 mmol/L (136-145) L Potassium Level 3.8 mmol/L (3.5-5.1) Chloride Level 99 mmol/L (101-111) L Carbon Dioxide Level 24 mmol/L (21-32) Blood Urea Nitrogen 15 mg/dL (7-18) Creatinine 0.7 mg/dL (0.5-1.0) Glomerular Filtration Rate Calc 92 mL/min (>90) Random Glucose 147 mg/dL (70-105) H Total Calcium 9.1 mg/dL (8.5-10.1) Troponin I High Sensitivity 19 ng/L (4-50) B-Type Natriuretic Peptide 119 pg/mL (0-100) H 1140/CHEST X-RAY DEMONSTRATES CYSTIC LESION TO RIGHT UPPER LOBE UNCHANGED FROM HIS PRIOR CHEST X-RAY. OTHERWISE UNREMARKABLE Labs Reviewed?: Yes EKG Comment: 1124/EKG SINUS BRADYCARDIA/HEART RATE 44/AXIS NORMAL/OLD LATERAL INFARCT NO NEW CHANGE ED Course ED Course Orders Procedure Category Date Status Time Covid19 (Sars Antigen LAB 05/15/25 Complete Rapid) 11:04 B-Type Natriuretic LAB 05/15/25 Complete Peptide 11:04 Cbc With Differential LAB 05/15/25 Complete 11:04 Chest 1vw RAD 05/15/25 Resulted 11:04 12 Lead Ekg Tracing- EKG 05/15/25 Complete Technical 11:04 Troponin I High LAB 05/15/25 Complete Sensitivity 11:04 Basic Metabolic Panel LAB 05/15/25 Complete 11:04 Vital Signs Date Time Temp Pulse Resp B/P (MAP) Pulse Ox O2 Delivery O2 Flow Rate FiO2 05/15/25 11:13 97.5 50 16 131/72 96 Room Air* 0 21 05/15/25 10:54 97.9 62 18 127/77 98 Room Air 0 1245/PATIENT DISCHARGED HOME AFTER WORKUP ESSENTIALLY UNREMARKABLE. PATIENT INSTRUCTED TO INCREASE YOUR FLUID INTAKE. SEE HER PRIMARY CARE DOCTOR FOR FOLLOW UP Medical Decision Making MDM MDM: DIFFERENTIAL DIAGNOSIS: ACS/AMI/ELECTROLYTE IMBALANCE/DEHYDRATION/PNEUMONIA/BRONCHITIS/SARS COVID RATIONALE: TESTS CONSIDERED AND ORDERED SECONDARY TO SHARED DECISION MAKING INCLUDE: EKG/LABS/RADIOLOGY PREVIOUS OUTSIDE RECORDS REVIEWED: OLD ER VISITS. RISK OF COMPLICATION AND/OR MORBIDITY OR MORTALITY OF PATIENT MANAGEMENT: NONE MEDICATIONS-PER MEDICATION RECONCILIATION NEED FOR HOSPITALIZATION: PATIENT DOES NOT MEET CRITERIA FOR HOSPITALIZATION. NONE NEED FOR EMERGENCY MAJOR/MINOR SURGERY: NO THERE ARE NO SOCIAL CONCERNS WITH THIS PATIENT. TOBACCO AND POLYDRUG ABUSE HISTORY PRESCRIPTION DRUG MANAGEMENT NONE PRESCRIPTIONS WILL INCLUDE SYMPTOMATIC CARE PATIENT'S PRIOR EXTERNAL MEDICAL RECORDS FROM OTHER ER VISITS WERE REVIEWED BY ME INDICATED. PRIOR TESTING AND RESULTS FROM PREVIOUS VISITS WERE REVIEWED. PRIOR TESTS WERE TAKEN INTO ACCOUNT WITH MEDICAL DECISION MAKING AND RESOURCE UTILIZATION, INDEPENDENT HISTORIAN/HISTORIANS WERE USED TO OBTAIN COMPLETE MEDICAL HISTORY. I INDEPENDENTLY INTERPRETED THE TEST THAT WERE PERFORMED, RESULTS WERE REVIEWED BY ME AND CONSIDERED FINDINGS ON RADIOLOGY IF ORDERED. MEDICAL MANAGEMENT AND EXAMINATION INTERPRETATION DISCUSSIONS WERE HAD BY ME WITH OTHER QUALIFIED HEALTHCARE PROFESSIONALS INDICATED FOR THE PATIENT'S CARE. DX & DISP Disposition: Discharge Departure Impression: Primary Impression: Viral URI with cough Additional Impressions: Mild dehydration, Homelessness Condition: Stable Scripts Benzonatate (Tessalon Perles) 100 Mg Cap 2 CAP PO TID for cough for 10 Days, #60 CAP 0 Refills Prov: HAYDEE GONZALEZ 05/15/25 Additional Instructions: FOLLOW-UP WITH PRIMARY CARE PROVIDER IN 1 TO 2 DAYS. TAKE MEDICATIONS DIRECTED HERE IN THE EMERGENCY ROOM. OKAY TO CONTINUE HOME MEDICATIONS UNLESS OTHERWISE DISCUSSED DURING YOUR VISIT IN THE EMERGENCY ROOM TODAY. RETURN TO YOUR NEAREST EMERGENCY ROOM IF SYMPTOMS WORSEN OR IF THERE IS NO IMPROVEMENT. CALL 911 IF YOU NEED IMMEDIATE ASSISTANCE. TAKE TYLENOL OR MOTRIN OVER -THE-COUNTER NEEDED AND IF NO CONTRAINDICATIONS ARE PRESENT. INCREASE ORAL HYDRATION. A WOUND CULTURE OR URINE CULTURE WAS ORDERED HERE IN THE EMERGENCY ROOM DEPARTMENT PLEASE FOLLOW-UP WITH PRIMARY CARE PROVIDER AND ADVISE THEM TO GET REPEAT PORTS FROM OUR FACILITY. IF YOU HAD ANY MALATHI WRAP/SPLINTS THAT WERE APPLIED HERE, PLEASE DO NOT REMOVE THEM UNTIL YOU SEE YOUR PRIMARY CARE OR SPECIALTY. DIET AND ACTIVITY TOLERATED. INCREASE YOUR FLUID INTAKE. SEE YOUR PRIMARY CARE DOCTOR FOLLOW UP IN THE NEXT 2-3 DAYS. STOP ALL TOBACCO ABUSE AND DO NOT USE ANY ILLEGAL DRUGS TO INCLUDE COCAINE OR RISK HEART ATTACK, STROKE, INSTANT . Referrals: SHARON RIBEIRO (PCP) Time of Disposition: 12:47 I have reviewed the case, and I agree with, Diagnosis and Plan HAYDEE GONZALEZ May 15, 2025 11:07
[2025-05-15 11:49] LABS: IMMATURE GRANULOCYTE ABSOLUTE 0.06 K/uL (0-1); NUCLEATED RED BLOOD CELLS 0.0 % (0.0-0.19); PLATELET COUNT (AUTO) 406 K/uL (130-400); RED BLOOD CELL COUNT(AUTO) 4.47 MIL/uL (4.00-5.50); RED CELL DISTRIBUTION WIDTH 15.0 % (11.0-15.5); WHITE BLOOD COUNT (AUTO) 6.0 K/uL (4.8-10.8)
--- NOTE | 2025-05-15 12:03 | EKG ---
[facility] Test Date: 2025-05-15 Test Time: 11:24:27 Pat Name: UMA LANDA Department: ED Room: Gender: F Boardmarker: [id number] : 1955 Requested By: HAYDEE GONZALEZ Order Number: [id number] Reading MD: Govind Haque Measurements Intervals [place] Rate: 44 P: 53 NC: 116 QRS: 45 QRSD: 102 T: 62 QT: 464 QTc: 398 Interpretive Statements Sinus bradycardia Probable lateral infarct, old Compared to ECG 04/29/2025 20:18:16 Myocardial infarct finding now present Sinus rhythm no longer present Electronically Signed On 05-15-2025 18:56:54 UTILITY MECHANIC SUPERVISOR by Govind Haque Please click the below link to view image of tracing.
[2025-05-15 12:06] LABS: CREATININE 0.7 mg/dL (0.5-1.0); GLOMERULAR FILTR. RATE CALC 92.0 mL/min (>90); GLUCOSE,RANDOM 147.0 mg/dL (70-105); SODIUM SERUM 132.0 mmol/L (136-145); UREA NITROGEN, BLOOD 15.0 mg/dL (7-18)
--- NOTE | 2025-05-15 12:15 | HMCIMG ---
CHEST 1VW REASON: COUGH/SOB COMPARISON: Prior chest radiograph from 05/05/2025 is available. FINDINGS: Single view of the chest was obtained. Lungs are hyperinflated flattening of both hemidiaphragms suggesting of chronic obstructive pulmonary disease. There is a cystic lesion seen in the right upper lung near the trachea. This appears to be stable and unchanged.. Heart size is normal. There is no pulmonary vascular congestion. Mediastinum and bony thorax appear unremarkable. IMPRESSION: 1. Unchanged from prior study with a cystic lesion seen in the right upper lung measuring 3.5 x 3.4 cm.. 2. Chronic obstructive disease 3. No evidence of airspace consolidation or pulmonary venous congestion.
[2025-05-15] MEDS ORDERED: BENZ-39 PO (12:48)
--- NOTE | 2025-05-15 13:00 | NUR ---
Spoke to APS Rep at [phone]. She reports JANNETH has an open case with Nedra Prosper and she will follow up with her at the [facility] and [facility] upon her discharge from ED.
[2025-05-15 13:39] VITALS: BP 131/72; PULSE 53; RESP 17; TEMP 97.8; O2SAT 97
--- NOTE | 2025-05-15 13:42 | NUR ---
PT MEDICALLY DISCHARGED HOME, PT STATES SHE HAS WET CLOTHES ON, OFFERED TO CHANGE HER INTO HER DRY CLOTHES, PT STATES SHE DOES NOT HAVE ANY EXTRA CLOTHES OFFERED GOWN AND SOCKS, PT REFUSED.
--- NOTE | 2025-05-15 13:57 | NUR ---
PT STABLE MEDICALLY CLEARED, PT HAS NO IV AT THIS TIME. PT GIVEN INSTRUCTION FOR HOME, PT HAS MEDICATION SENT TO PHARMACY. PT WALKED OUT TO ED LOBBY WITH PERSONAL BELONGINGS, STATES SHE WILL USE PUBLIC TRANSP[facility]ATION TO [facility]
== END 2025-05-15 14:08 | disposition home or self-care (01) ==
LOC: EDH 10:53
DX: J06.9 Acute upper respiratory infection, unspecified (principal); E86.0 Dehydration; I10 Essential (primary) hypertension; J44.9 Chronic obstructive pulmonary disease, unspecified; I21.9 Acute myocardial infarction, unspecified; Z79.02 Long term (current) use of antithrombotics/antiplatelets; Z59.00 Homelessness unspecified; Z88.0 Allergy status to penicillin; Z88.6 Allergy status to analgesic agent; Z88.8 Allergy status to other drugs, medicaments and biological substances; Z79.899 Other long term (current) drug therapy; Z79.891 Long term (current) use of opiate analgesic; Z79.51 Long term (current) use of inhaled steroids; Z20.822 Contact with and (suspected) exposure to COVID-19
CPT/HCPCS: 36415; 71045; 80048; 83880; 84484; 85025; 87426; 93005; 99285

== ENCOUNTER 2025-05-17 19:10 | Emergency (ER) | payer MEDICARE, MEDICAID ==
[~2025-05-17] VITALS: Ht 162.6 cm; Wt 59.0 kg
[~2025-05-17 19:10] MED LIST changes: +BENZ-39 PO
[2025-05-17 19:12] VITALS: TEMP 100.5
[2025-05-17 20:36] VITALS: BP 121/68; PULSE 60; RESP 18; O2SAT 98
[2025-05-17 20:55] LABS: IMMATURE GRANULOCYTE ABSOLUTE 0.09 K/uL (0-1); NUCLEATED RED BLOOD CELLS 0.0 % (0.0-0.19); PLATELET COUNT (AUTO) 375 K/uL (130-400); RED BLOOD CELL COUNT(AUTO) 4.21 MIL/uL (4.00-5.50); RED CELL DISTRIBUTION WIDTH 15.1 % (11.0-15.5); WHITE BLOOD COUNT (AUTO) 9.7 K/uL (4.8-10.8)
--- NOTE | 2025-05-17 20:58 | ERN ---
ED Note History of Present Illness Stated Complaint: H/A, R HAND PAIN, WEAKNESS Chief Complaint: Multiple Complaints Time Seen by MD: 19:17 Dictation: This is a 69-year-old female who presented to the emergency room with complaints of right hand pain and feeling overall weak which started about 2 days ago. She stated that she fell tripped on her dog and sustained an injury to the hand. She did not lose consciousness she is not on any blood thinners. She lives in a homeless half-way at times and was recently seen in the emergency room twice. During this recent times she had nasopharyngeal swabs for influenza COVID and strep which were all negative on 04/26/2025. On 05/05/2025 she had a UTI that was treated. On the same day UDS was positive for cocaine and marijuana. She did state that she has been cocaine and marijuana on . She also complained of a headache which is chronic diffusely but no blurred vision diplopia facial droop motor weakness or seizure activity. No nausea vomitings. No halos or photosensitivity. Temperature a 100.6 pulse 67 respirations 16 blood pressure 120/54 with a pulse oximetry of 96% on room air Patient has chronic medical problems which include COPD, hypertension, chronic bronchitis, recreational drug abuse and homelessness Allergies: Coded Allergies: Penicillins (Unverified Allergy, Severe, SWELLING, 08/21/19) aspirin (Unverified Allergy, Unknown, SWELLING, 08/21/19) warfarin (Unverified Allergy, Unknown, 02/06/22) wool (Unverified Allergy, Unknown, RASH, 08/21/19) Home Meds Active Scripts Benzonatate (Tessalon Perles) 100 Mg Cap, 2 CAP PO TID for cough for 10 Days, #60 CAP 0 Refills Prov:HAYDEE GONZALEZP 05/15/25 Sulfamethoxazole/Trimethoprim (Bactrim Ds Tablet) 800 Mg-160 Mg Tablet, 1 TAB PO BID for 7 Days, #14 TAB 0 Refills Prov:DARLYN CORONADO CNP 05/05/25 Albuterol Sulfate (Ventolin Hfa) 90 Mcg Hfa.aer.ad, 2 PUFF IH Q4HPRN PRN for wheezing for 30 Days, #18 GM 0 Refills Prov:SANDRA HAAS MD 04/26/25 Potassium Chloride (K-Dur/Klor-Con) 10 Meq Ertab, 1 TAB PO DAILY for 10 Days, #10 TAB 0 Refills Prov:SANDRA HAAS MD 04/26/25 Sulfamethoxazole/Trimethoprim (Bactrim Ds Tablet) 1 Each Tablet, 1 TAB PO BID for 7 Days, #14 TAB 0 Refills Prov:MARKOS WEINERAmandoJAMIE OPERATIONAL INTELLIGENCE ANALYST 10/05/22 Albuterol Sulfate (Proair Hfa) 8.5 Gm Hfa.aer.ad, 2 PUFF IH QIDP, #1 INHALER Prov:EJ LAGUNA 02/06/22 D-Methorphan/PE/Acetaminophen (Theraflu Ms Severe Cold Pckt) 1 Each Powd.pack, 1 EACH PO QIDP, #20 PACK Prov:EJ LAGUNA 02/06/22 Cyclobenzaprine HCl (Flexeril) 10 Mg Tab, 10 MG PO BID, #30 TAB Prov:EJ LAGUNA 02/06/22 Naproxen (Naprosyn) 500 Mg Tablet, 500 MG PO BIDPC, #60 TAB Prov:EJ LAGUNA 02/06/22 Loratadine (Loratadine) 10 Mg Tablet, 10 MG PO DAILY for 30 Days, #30 TAB Prov:SANDRA HAAS MD 11/07/21 Fluticasone Propionate (Flonase Nasal [place]) 50 Mcg/[place], 50 MCG NASAL BID for 7 Days, #14 SPRAY Prov:SANDRA HAAS MD 11/07/21 Reported Medications Mirtazapine (Mirtazapine) 15 Mg Tab.rapdis, 15 MG PO HS, TAB 08/21/19 Hydrocodone/Acetaminophen (Moca 10-325 Tablet) 1 Each Tablet, 1 EACH PO TID, TAB 20 Clopidogrel Bisulfate (Plavix) 75 Mg Tablet, 75 MG PO DAILY, TAB 08/21/19 Pregabalin (Lyrica) 150 Mg Capsule, 150 MG PO BID, CAP 08/21/19 Alprazolam (Xanax) 1 Mg Tablet, 1 MG PO TID, TAB 08/21/19 Budesonide/Formoterol Fumarate (Symbicort 160-4.5 Mcg Inhaler) 10.2 Gm Hfa.aer.ad, 10.2 GM IH BID 08/21/19 Metformin HCl (Metformin HCl) 500 Mg Tablet, 500 MG PO DAILYBKFST, TAB 08/21/19 Ropinirole HCl (Ropinirole HCl) 2 Mg Tablet, 2 MG PO TID, TAB 08/21/19 Tiotropium [place] (Spiriva Respimat) 4 Gm Mist.inhal, 4 GM IH DAILY 08/21/19 Past Medical History Past Medical History: Anxiety, COPD, Depression, Diabetes-Type II, Other Additional Past Medical Hx: CHRONIC BRONCHITIS Surgical History: Unknown Surgical History Other: RIGHT SHOULDER, KIDNEY SX Family History: Negative Social History: Smokers, Drugs, ETOH History: Not Applicable RN Note Reviewed/Agreed w/PFSH: Yes Review of System Dictation Constitutional: Negative for fever,chills, and weight loss Eyes: Negative for injury, pain,redness, and discharge ENT: Negative for injury,pain or swelling Cardiovascular: Negative for chest pain, palpitations, and edema Respiratory: Negative for shortness of breath, cough, and wheezing, Abdomen/GI: Negative for abdominal pain, nausea, vomiting, diarrhea, and constipation Back: Negative for injury and pain : Negative for injury, bleeding and discharge MS/Extremity: Positive for injury and swelling and pain of the right wrist Skin: Negative for rash, and discoloration Neuro: Pauses for nonspecific headache, denied weakness, numbness, tingling, and seizure Psych: Negative for suicide ideation, homicidal ideation, and hallucinations Initial Vital Sign VS Vital Signs Date Time Temp Pulse Resp B/P (MAP) Pulse Ox O2 Delivery O2 Flow Rate FiO2 05/17/25 19:12 100.6 67 16 120/54 96 Room Air 0 05/17/25 20:36 21 Physical Exam Dictation General: awake, alert, NAD very unkempt and disheveled, looks much older and emaciated Head/Face: Normocephalic, atraumatic Eyes: PERRL, EOMI, vision at baseline ENT: oral cavity clear, TMs clear, no signs of infection poor dentition Neck: Trachea midline, supple, no nuchal rigidity Cardiovascular: RRR, normal S1/S2, No MRGs, no JVD Respiratory: CTAB, no respiratory distress, No rales or wheezes Abdomen: Soft, non-tender, non-distended, normal bowel sounds, no guarding or rebound. Skin: Warm, dry, normal turgor, no rash MS/Extremity: Pulses equal, no cyanosis, neurovascular intact, FROM right wrist area on the dorsal surface is mildly swollen but I do not see any erythema open wounds or drainage no fluctuance noted. Patient's range of motion is intact Neuro: COAx4, GCS 15, strength 5/5, CN 2-12 intact, normal cerebellar exam, normal gait, Psych: Normal behavior, mood, and affect normal Extremities-trace edema without any palpable cords, Homans sign is negative Results (Laboratory/Radiology) Laboratory/Radiology Laboratory Tests Test 05/17/25 20:31 05/17/25 20:35 White Blood Count 9.7 K/uL (4.8-10.8) Red Blood Count 4.21 MIL/uL (4.00-5.50) Hemoglobin 11.5 g/dL (12.0-16.0) L Hematocrit 36.5 % (36-48) Mean Corpuscular Volume 86.7 fL (79-99) Mean Corpuscular Hemoglobin 27.3 pg (27.0-33.0) Mean Corpuscular Hemoglobin Concent 31.5 g/dL (32.0-36.0) L Red Cell Distribution Width 15.1 % (11.0-15.5) Platelet Count 375 K/uL (130-400) Mean Platelet Volume 8.9 fL (7.5-10.5) Immature Granulocyte % (Auto) 0.9 % (0-1) Neutrophils (%) (Auto) 72.8 % (40.0-77.0) Lymphocytes (%) (Auto) 17.2 % (21.0-51.0) L Monocytes (%) (Auto) 7.9 % (3.0-13.0) Eosinophils (%) (Auto) 0.9 % (0.0-8.0) Basophils (%) (Auto) 0.3 % (0.0-5.0) Neutrophils # (Auto) 7.0 K/uL (1.8-7.7) Lymphocytes # (Auto) 1.7 K/uL (1.0-4.8) Monocytes # (Auto) 0.8 K/uL (0.1-1.0) Eosinophils # (Auto) 0.09 K/uL (0.00-0.70) Basophils # (Auto) 0.03 K/uL (0.00-0.20) Absolute Immature Granulocyte (auto 0.09 K/uL (0-1) Nucleated Red Blood Cells 0.0 % (0.0-0.19) Sodium Level 136 mmol/L (136-145) Potassium Level 3.1 mmol/L (3.5-5.1) L Chloride Level 99 mmol/L (101-111) L Carbon Dioxide Level 28 mmol/L (21-32) Blood Urea Nitrogen 14 mg/dL (7-18) Creatinine 0.7 mg/dL (0.5-1.0) Glomerular Filtration Rate Calc 92 mL/min (>90) Random Glucose 89 mg/dL (70-105) Total Calcium 9.0 mg/dL (8.5-10.1) Serum Alcohol < 3 mg/dL (0-10) Influenza Type A Antigen Negative For Type A Influenza Type B Antigen Negative For Type B Labs Reviewed?: Yes ED Course ED Course Orders Procedure Category Date Status Time Alcohol, Blood LAB 05/17/25 Complete 19:54 Cbc With Differential LAB 05/17/25 Complete 19:54 Basic Metabolic Panel LAB 05/17/25 Complete 19:54 Urinalysis Profile LAB 05/17/25 Logged 19:54 Drug Screen Urine LAB 05/17/25 Logged 19:54 Influenza Type A & B, LAB 05/17/25 Complete Rapid 19:54 Wrist Comp 3+Vws Rt RAD 05/17/25 Resulted 20:23 Fentanyl Citrate Pf PHA 05/17/25 Complete 0.05 Mg/Ml (Fentanyl 22:00 Tramadol Hcl (Ultram) PHA 05/17/25 Complete 22:30 Potassium Bicarb/Cit PHA 05/17/25 Complete Ac 25meq (K-Lyte Ta 22:30 Current Medications Medications (Trade) Dose Ordered Sig/Franco Route PRN Reason Start Time Stop Time Status Last Admin Dose Admin Fentanyl Citrate (FENTanyl CITRate PF 50 MCG/ 1 ML 2ML VIAL) 50 mcg ONCE ONCE IVP 05/17/25 22:00 05/17/25 22:06 DC Potassium Bicarbonate (K-Lyte Tablet Eff 25 Meq Tablet.eff) 50 meq ONCE ONCE PO 05/17/25 22:30 05/17/25 22:31 DC 05/17/25 22:15 Tramadol HCl (UltRAM) 50 mg ONCE ONCE PO 05/17/25 22:30 05/17/25 22:31 DC 05/17/25 22:15 Vital Signs Date Time Temp Pulse Resp B/P (MAP) Pulse Ox O2 Delivery O2 Flow Rate FiO2 05/17/25 20:36 60 18 121/68 98 Room Air* 0 21 05/17/25 19:12 100.6 67 16 120/54 96 Room Air 0 Medical Decision Making MDM Differential diagnosis: Carpal tunnel syndrome, cellulitis, contusion of the wrist, fracture of carpal bones, ligamental tear Rationale: Tests considered and ordered secondary to shared decision making include: X-ray and labs Previous outside records reviewed: Old ER visits. Risk of complication and/or morbidity or mortality of patient management: None Medications-Per medication reconciliation Need for hospitalization: Patient does not meet criteria for hospitalization. Need for emergency major/minor surgery: No There are no social concerns with this patient. Prescription drug management Prescriptions will include symptomatic care Patient's prior external medical records from other ER visits were reviewed by me as indicated. Prior testing and results from previous visits were reviewed. Prior tests were taken into account with medical decision making and resource utilization, independent historian/historians were used to obtain complete medical history. I independently interpreted the test that were performed, results were reviewed by me and considered findings on radiology if ordered. Medical management and examination interpretation discussions were had by me with other qualified healthcare professionals as indicated for the patient's care. Procedure Pre-Made Type: velcro Hand-Made Type: Splint: wrist Pre-Proc Neuro Vasc Exam: normal Post-Proc Neuro Vasc Exam: normal Problem List Problem List: (1) Pain and swelling of right wrist (2) Contusion of wrist, right (3) Hypokalemia (4) Polysubstance abuse DX & DISP Disposition: Discharge Departure Impression: Primary Impression: Pain and swelling of right wrist Additional Impressions: Contusion of wrist, right, Hypokalemia, Polysubstance abuse, Homelessness Condition: Stable Additional Instructions: Patient and the caregiver have been informed of all the diagnostic tests and the imaging conducted during the today's visit to the emergency room and has verbalized understanding of the results I have personally reviewed and interpreted all diagnostic exams performed here in the ER today as well as the vital signs documented by the nursing staff. The patient is now being discharged to half-way and should follow up with the primary care physician or the specialist as directed by the ER staff. Extensive counseling done on 4. Discussed extensively cocaine and marijuana abstinence and provided resou rces. 5. Smoking cessation and toxic effects of tobacco and complications associated with worsening lung disease, incidents of lung cancer and other cancers cardiac arrest and . 6. Stop alcohol and resources for withdrawal and abstinence with addiction medicine offered. 7. Regular followups. Referrals: SHARON RIBEIRO (PCP) GERMAN VALDOVINOS MD May 17, 2025 20:58
[2025-05-17 21:05] LABS: CREATININE 0.7 mg/dL (0.5-1.0); GLOMERULAR FILTR. RATE CALC 92 mL/min (>90); GLUCOSE,RANDOM 89 mg/dL (70-105); SODIUM SERUM 136 mmol/L (136-145); UREA NITROGEN, BLOOD 14 mg/dL (7-18)
[2025-05-17 21:06] LABS: ALCOHOL, BLOOD < 3 mg/dL (0-10)
[2025-05-17 21:15] LABS: INFLUENZA TYPE A Negative For Type A (NEGATIVE); INFLUENZA TYPE B Negative For Type B (NEGATIVE)
--- NOTE | 2025-05-17 22:05 | NUR ---
PATIENT REFUSED TO HAVE IV ESTABLISHED FOR MEDICATION ADMINISTRATION
--- NOTE | 2025-05-17 22:16 | HMCIMG ---
EXAM: CR Right Wrist, 3 views. CLINICAL HISTORY: Pain. Swelling. Injury. COMPARISON: None provided. FINDINGS: No acute fracture or aggressive appearing osseous lesion. The carpal bones demonstrate normal alignment. Mild osteopenia. Mild osteoarthritis. Diffuse soft tissue swelling is evident. Degenerative calcifications around the triangular fibrocartilaginous ligament. IMPRESSION: No acute bony abnormality is evident. Degenerative changes. Mild diffuse soft tissue swelling. /[place]
--- NOTE | 2025-05-17 22:46 | NUR ---
PATIENT REFUSES TO LEAVE, SECURITY NOTIFIED
--- NOTE | 2025-05-17 22:57 | NUR ---
HOSPITAL SECURITY AT BEDSIDE
== END 2025-05-17 22:59 | disposition home or self-care (01) ==
LOC: EDH 19:10
DX: S60.211A Contusion of right wrist, initial encounter (principal); E87.6 Hypokalemia; F19.10 Other psychoactive substance abuse, uncomplicated; E11.9 Type 2 diabetes mellitus without complications; F32.A Depression, unspecified; J44.9 Chronic obstructive pulmonary disease, unspecified; F41.9 Anxiety disorder, unspecified; F17.200 Nicotine dependence, unspecified, uncomplicated; Z88.0 Allergy status to penicillin; Z88.6 Allergy status to analgesic agent; Z88.8 Allergy status to other drugs, medicaments and biological substances; Z79.899 Other long term (current) drug therapy; Z79.891 Long term (current) use of opiate analgesic; Z79.51 Long term (current) use of inhaled steroids; Z79.02 Long term (current) use of antithrombotics/antiplatelets; Z59.00 Homelessness unspecified; W01.0XXA Fall on same level from slipping, tripping and stumbling without subsequent striking against object, initial encounter; Y93.89 Activity, other specified; Y92.89 Other specified places as the place of occurrence of the external cause; Y99.8 Other external cause status
CPT/HCPCS: 29125; 36415; 73110; 80048; 85025; 87804; 99284; J3010